=== PATIENT | female | born 1935 | race African-American/Black ===

== ENCOUNTER 2016-07-31 10:23 | Inpatient (IN) | payer MEDICARE, MEDICAID ==
[2016-07-31] MEDS ORDERED: NITROGLYCERIN 50 MG/D5W 250 ML IV PRN (11:37)
[2016-07-31 12:33] LABS: ABSOLUTE BASOPHILS # (AUTO) 0.1 10^3/uL (0.0-0.2); ABSOLUTE EOSINOPHILS # (AUTO) 0.1 10^3/uL (0.0-0.6); ABSOLUTE MONOCYTES (AUTO) 0.7 10^3/uL (0.1-1.4); ABSOLUTE NEUT (AUTO) 4.8 10^3/uL (1.7-8.2); EOSINOPHILS % (AUTO) 0.8 % (0-6); HEMATOCRIT 41.7 % (36.0-47.0); HEMOGLOBIN 14.5 g/dL (12.0-15.5); HGB HCT DIFFERENCE 1.8; LYMPHOCYTES % (AUTO) 26.4 % (13-45); MEAN CORPUSCULAR HEMOGLOBIN 32.5 pg (27.0-33.4); MEAN CORPUSCULAR HGB CONC 34.9 g/dL (32.0-36.0); MEAN CORPUSCULAR VOLUME 93 fl (80-97); MONOCYTES % (AUTO) 8.5 % (3-13); RED BLOOD COUNT 4.46 10^6/uL (3.72-5.28); RED CELL DISTRIBUTION WIDTH 13.2 % (11.5-14.0); SEGMENTED NEUTROPHILS % (AUTO) 63.3 % (42-78); WHITE BLOOD COUNT 7.7 10^3/uL (4.0-10.5)
[2016-07-31 12:52] LABS: APPEARANCE,URINE SLIGHTLY-CLOUDY; BILIRUBIN,URINE NEGATIVE (NEGATIVE); GLUCOSE, URINE NEGATIVE (NEGATIVE); KETONES,URINE NEGATIVE (NEGATIVE); LEUKOCYTE ESTERASE,URINE NEGATIVE (NEGATIVE); NITRITE,URINE NEGATIVE (NEGATIVE); PROTEIN,URINE NEGATIVE (NEGATIVE); UROBILINOGEN,URINE NEGATIVE mg/dL (<2.0)
[2016-07-31 14:03] LABS: ALBUMIN 4.1 g/dL (3.5-5.0); ANION GAP 16 (5-19); CARBON DIOXIDE 22 mmol/L (22-30); CHLORIDE 104 mmol/L (98-107); GLUCOSE 126 mg/dL (75-110); POTASSIUM 4.1 mmol/L (3.6-5.0); SODIUM 142.2 mmol/L (137-145); TOTAL PROTEIN 7.2 g/dL (6.3-8.2)
[2016-07-31 14:05] LABS: ALANINE AMINOTRANSFERASE 28 U/L (9-52); ALKALINE PHOSPHATASE 61 U/L (38-126); ASPARTATE AMINO TRANSFERASE 27 U/L (14-36); BILIRUBIN,DIRECT 0.4 mg/dL (0.0-0.4); BILIRUBIN,TOTAL 0.7 mg/dL (0.2-1.3); BLOOD UREA NITROGEN 14 mg/dL (7-20); CALCIUM 9.4 mg/dL (8.4-10.2); CREATININE RESULT 0.64 mg/dL (0.52-1.25)
[2016-07-31] MEDS ORDERED: ENOXAPARIN SODIUM INJ 40 MG/0.4 ML DISP.SYRIN SUBCUT ONE (15:15)
[2016-07-31] MEDS: ENALAPRILAT DIHYDRATE INJ/PF 2.5 MG/2 ML SDV IV SCH ×2 (16:02→23:10)
--- NOTE | 2016-07-31 18:59 | EKG REPORT ---
SEVERITY:- ABNORMAL ECG - SINUS RHYTHM PROBABLE LEFT ATRIAL ABNORMALITY PROBABLE LEFT VENTRICULAR HYPERTROPHY : Confirmed by: Nini Nowak 31-Jul-2016 18:59:28
--- NOTE | 2016-07-31 19:46 | PDOC H&P ---
History of Present Illness Admission Date/PCP: 07/31/16 10:23 SHANIA ARDON MD History of Present Illness: CORNELIA AMAYA is a 80 year old female, she is not compliant with her medications for the control blood pressure, she have hypertension, she came to the office today for follow-up, the blood pressure recorded was 220 systolic over 120 diastolic and she was symptomatic with headache and neck pain, because of the severely elevated blood pressure and the fact that she was symptomatic ,she was admitted directly from the office into the hospital for management.. Patient shown persistent non-medication adherence over many months, she always expresses concern about medication for the control blood pressure and she does not also engages in therapeutic lifestyle modifications including regular exercise and the adoption of "DASH" dietary restriction. Past Medical History Cardiac Medical History: Reports: Hypertension Musculoskeltal Medical History: Reports: Arthritis Psychiatric Medical History: Reports: General Anxiety Disorder Social History Smoking Status: Former Smoker Last Time Smoked: About 60 years ago Frequency of Alcohol Use: None Drugs: None Hx Prescription Drug Abuse: No Family History Family History: Hypertension Parental Family History Reviewed: Yes Children Family History Reviewed: Yes Sibling(s) Family History Reviewed.: Yes Medication/Allergy Home Medications: Azilsartan Medoxomil [Edarbi] 80 mg PO DAILY 07/31/16 Hydrocodone Bit/Acetaminophen [Hydrocodon-Acetaminophn 10-325] 1 tab PO TIDP PRN 07/31/16 Lorazepam [Ativan 1 mg Tablet] 1 mg PO BID 07/31/16 Metoprolol Succinate [Toprol XL 100 mg Tablet] 100 mg PO DAILY 07/31/16 Allergies/Adverse Reactions: metoprolol Allergy (Unknown, Unverified 07/31/16 10:45) hydralazine Allergy (Unverified 07/31/16 10:47) labetalol Allergy (Unverified 07/31/16 10:46) Review of Systems Constitutional: PRESENT: headache(s) Eyes: ABSENT: visual disturbances Ears: ABSENT: hearing changes Cardiovascular: ABSENT: chest pain, dyspnea on exertion, edema, orthropnea, palpitations Respiratory: ABSENT: cough, hemoptysis Gastrointestinal: ABSENT: abdominal pain, constipation, diarrhea, hematemesis, hematochezia, nausea, vomiting Genitourinary: ABSENT: dysuria, hematuria Musculoskeletal: ABSENT: joint swelling Integumentary: ABSENT: rash, wounds Neurological: ABSENT: abnormal gait, abnormal speech, confusion, dizziness, focal weakness, syncope Psychiatric: ABSENT: anxiety, depression, homidical ideation, suicidal ideation Endocrine: ABSENT: cold intolerance, heat intolerance, menstrual abnormalities, polydipsia, polyuria Hematologic/Lymphatic: ABSENT: easy bleeding, easy bruising, lymphadenopathy Physical Exam Vital Signs: Temp Pulse Resp BP Pulse Ox 99.1 F 82 18 147/85 H 97 07/31/16 18:23 07/31/16 18:30 07/31/16 17:41 07/31/16 18:30 07/31/16 18:23 Intake & Output 07/30/16 07/31/16 08/01/16 06:59 06:59 06:59 Intake Total 483 Output Total 350 Balance 133 Weight 79 kg General appearance: PRESENT: no acute distress, well-developed, well-nourished Head exam: PRESENT: atraumatic, normocephalic Eye exam: PRESENT: conjunctiva pink, EOMI, PERRLA Ear exam: PRESENT: normal external ear exam Mouth exam: PRESENT: moist, tongue midline Neck exam: PRESENT: full ROM Respiratory exam: PRESENT: clear to auscultation keith Cardiovascular exam: PRESENT: RRR, +S1, +S2 Pulses: PRESENT: normal dorsalis pedis pul, +2 pedal pulses bilateral Vascular exam: PRESENT: normal capillary refill GI/Abdominal exam: PRESENT: normal bowel sounds, soft Rectal exam: PRESENT: deferred Neurological exam: PRESENT: alert, awake, oriented to person, oriented to place , oriented to time, oriented to situation, CN II-XII grossly intact Psychiatric exam: PRESENT: appropriate affect, normal mood Skin exam: PRESENT: dry, intact, warm Results Laboratory Results: 07/31/16 12:05 07/31/16 13:18 07/31/16 07/31/16 07/31/16 12:05 12:05 12:25 WBC 7.7 RBC 4.46 Hgb 14.5 Hct 41.7 MCV 93 MCH 32.5 MCHC 34.9 RDW 13.2 Plt Count 249 Seg Neutrophils % 63.3 Lymphocytes % 26.4 Monocytes % 8.5 Eosinophils % 0.8 Basophils % 1.0 Absolute Neutrophils 4.8 Absolute Lymphocytes 2.0 Absolute Monocytes 0.7 Absolute Eosinophils 0.1 Absolute Basophils 0.1 Sodium Cancelled Potassium Cancelled Chloride Cancelled Carbon Dioxide Cancelled Anion Gap Cancelled BUN Cancelled Creatinine Cancelled Est GFR ( Amer) Cancelled Est GFR (Non-Af Amer) Cancelled Glucose Cancelled Calcium Cancelled Total Bilirubin Cancelled AST Cancelled ALT Cancelled Alkaline Phosphatase Cancelled Total Protein Cancelled Albumin Cancelled Urine Color YELLOW Urine Appearance SLIGHTLY-CLOUDY Urine pH 6.0 Ur Specific [place] 1.010 Urine Protein NEGATIVE Urine Glucose (UA) NEGATIVE Urine Ketones NEGATIVE Urine Blood NEGATIVE Urine Nitrite NEGATIVE Ur Leukocyte Esterase NEGATIVE Urine WBC (Auto) 0 07/31/16 13:18 WBC RBC Hgb Hct MCV MCH MCHC RDW Plt Count Seg Neutrophils % Lymphocytes % Monocytes % Eosinophils % Basophils % Absolute Neutrophils Absolute Lymphocytes Absolute Monocytes Absolute Eosinophils Absolute Basophils Sodium 142.2 Potassium 4.1 Chloride 104 Carbon Dioxide 22 Anion Gap 16 BUN 14 Creatinine 0.64 Est GFR ( Amer) > 60 Est GFR (Non-Af Amer) > 60 Glucose 126 H Calcium 9.4 Total Bilirubin 0.7 AST 27 ALT 28 Alkaline Phosphatase 61 Total Protein 7.2 Albumin 4.1 Urine Color Urine Appearance Urine pH Ur Specific [place] Urine Protein Urine Glucose (UA) Urine Ketones Urine Blood Urine Nitrite Ur Leukocyte Esterase Urine WBC (Auto) Impressions: Chest X-Ray 07/31/16 00:00 IMPRESSION: NO SIGNIFICANT RADIOGRAPHIC FINDING IN THE CHEST. Assessment & Plan - Diagnosis (1) Hypertensive emergency Is this a current diagnosis for this admission?: YesPlan: She has hypertensive emergency she is symptomatic and the blood pressure is over 180 systolic consistent with hypertensive emergency she is admitted to be treated with IV Vasotec and nitroglycerin infusion and MRI brain to be ordered
[2016-08-01] MEDS: ENALAPRILAT DIHYDRATE INJ/PF 2.5 MG/2 ML SDV IV SCH ×4 (04:17→20:40)
[2016-08-01] MEDS: ENOXAPARIN SODIUM INJ 40 MG/0.4 ML DISP.SYRIN SUBCUT SCH (09:55)
--- NOTE | 2016-08-01 20:23 | PDOC PROGRESS REPORT ---
Subjective Progress Note for:: 08/01/16 Subjective:: Patient was admitted yesterday because of hypertensive emergency, MRI brain was done today showed cerebral atrophy but there is no acute infarction, no hemorrhage Physical Exam Vital Signs: Temp Pulse Resp BP Pulse Ox 98.9 F 84 19 187/86 H 100 08/01/16 15:32 08/01/16 19:00 08/01/16 15:32 08/01/16 15:32 08/01/16 15:32 Intake & Output 07/31/16 08/01/16 08/02/16 06:59 06:59 06:59 Intake Total 1392 1030 Output Total 350 200 Balance 1042 830 Weight 79 kg General appearance: PRESENT: no acute distress, well-developed, well-nourished Head exam: PRESENT: atraumatic, normocephalic Eye exam: PRESENT: conjunctiva pink, EOMI, PERRLA Ear exam: PRESENT: normal external ear exam Mouth exam: PRESENT: moist, tongue midline Neck exam: PRESENT: full ROM Respiratory exam: PRESENT: clear to auscultation keith Cardiovascular exam: PRESENT: RRR, +S1, +S2 Pulses: PRESENT: normal dorsalis pedis pul, +2 pedal pulses bilateral Vascular exam: PRESENT: normal capillary refill GI/Abdominal exam: PRESENT: normal bowel sounds, soft Rectal exam: PRESENT: deferred Neurological exam: PRESENT: alert, awake, oriented to person, oriented to place , oriented to time, oriented to situation, CN II-XII grossly intact Psychiatric exam: PRESENT: appropriate affect, normal mood Skin exam: PRESENT: dry, intact, warm Results Laboratory Results: 07/31/16 12:05 07/31/16 13:18 Impressions: Chest X-Ray 07/31/16 00:00 IMPRESSION: NO SIGNIFICANT RADIOGRAPHIC FINDING IN THE CHEST. Head MRI 08/01/16 00:00 IMPRESSION: ATROPHY AND CHRONIC MICRO-VASCULAR ISCHEMIC CHANGES. OTHERWISE NORMAL MRI OF THE BRAIN WITHOUT INTRAVENOUS GADOLINIUM CONTRAST. Assessment & Plan - Diagnosis (1) Hypertensive emergency Is this a current diagnosis for this admission?: YesPlan: The nitroglycerin infusion was weaned off and she is now started on p.o. medications she is still on the IV Vasotec
[2016-08-01] MEDS ORDERED: HYDROCODONE/ACETAMINOPHEN 10-325 MG TABLET PO PRN (20:33)
[2016-08-01] MEDS ORDERED: ONDANSETRON HCL INJ/PF 4 MG/2 ML SDV IV PRN (20:35)
[2016-08-02] MEDS: ENALAPRILAT DIHYDRATE INJ/PF 2.5 MG/2 ML SDV IV SCH ×4 (03:49→21:45)
[2016-08-02] MEDS: ENOXAPARIN SODIUM INJ 40 MG/0.4 ML DISP.SYRIN SUBCUT SCH (09:00)
[2016-08-02] MEDS: LORAZEPAM 1 MG TABLET PO SCH ×2 (09:01→17:03)
[2016-08-02] MEDS: METOPROLOL SUCCINATE 50 MG TAB.SR.24H PO SCH (09:02)
[2016-08-02] MEDS ORDERED: (PENDING PHARMACY ID) (Azilsartan Medoxomil [Edarbi] 80 MG) PO SCH (10:00)
--- NOTE | 2016-08-02 17:12 | PDOC PROGRESS REPORT ---
Subjective Progress Note for:: 08/02/16 Subjective:: Patient is not compliant with her medication for the control blood pressure. She is still on IV Vasotec and p.o. metoprolol Physical Exam Vital Signs: Temp Pulse Resp BP Pulse Ox 99.0 F 68 19 148/83 H 98 08/02/16 16:28 08/02/16 16:28 08/02/16 16:28 08/02/16 16:28 08/02/16 16:28 Intake & Output 08/01/16 08/02/16 08/03/16 06:59 06:59 06:59 Intake Total 1392 1030 100 Output Total 350 200 Balance 1042 830 100 Weight 79 kg General appearance: PRESENT: no acute distress, well-developed, well-nourished Head exam: PRESENT: atraumatic, normocephalic Eye exam: PRESENT: conjunctiva pink, EOMI, PERRLA Ear exam: PRESENT: normal external ear exam Mouth exam: PRESENT: moist, tongue midline Neck exam: PRESENT: full ROM Respiratory exam: PRESENT: clear to auscultation keith Cardiovascular exam: PRESENT: RRR, +S1, +S2 Pulses: PRESENT: normal dorsalis pedis pul, +2 pedal pulses bilateral Vascular exam: PRESENT: normal capillary refill GI/Abdominal exam: PRESENT: normal bowel sounds, soft Rectal exam: PRESENT: deferred Neurological exam: PRESENT: alert, awake, oriented to person, oriented to place , oriented to time, oriented to situation, CN II-XII grossly intact. ABSENT: motor sensory deficit Psychiatric exam: PRESENT: appropriate affect, normal mood Skin exam: PRESENT: dry, intact, warm Results Laboratory Results: 07/31/16 12:05 07/31/16 13:18 Impressions: Chest X-Ray 07/31/16 00:00 IMPRESSION: NO SIGNIFICANT RADIOGRAPHIC FINDING IN THE CHEST. Head MRI 08/01/16 00:00 IMPRESSION: ATROPHY AND CHRONIC MICRO-VASCULAR ISCHEMIC CHANGES. OTHERWISE NORMAL MRI OF THE BRAIN WITHOUT INTRAVENOUS GADOLINIUM CONTRAST. Assessment & Plan - Diagnosis (1) Hypertensive emergency Is this a current diagnosis for this admission?: YesPlan: Start amlodipine 10 mg p.o. daily in addition to the metoprolol
[2016-08-02] MEDS ORDERED: AMLODIPINE BESYLATE 10 MG TABLET PO ONE (18:00)
[2016-08-03] MEDS: ENALAPRILAT DIHYDRATE INJ/PF 2.5 MG/2 ML SDV IV SCH ×4 (03:55→23:28)
[2016-08-03] MEDS: LORAZEPAM 1 MG TABLET PO SCH ×2 (09:23→18:29)
[2016-08-03] MEDS: ENOXAPARIN SODIUM INJ 40 MG/0.4 ML DISP.SYRIN SUBCUT SCH (09:25)
[2016-08-03] MEDS: AMLODIPINE BESYLATE 10 MG TABLET PO SCH (09:25)
[2016-08-03] MEDS: METOPROLOL SUCCINATE 50 MG TAB.SR.24H PO SCH (09:25)
--- NOTE | 2016-08-03 18:55 | PDOC DISCHARGE SUMMARY ---
General - Admit/Disc Date/PCP Admission Date/Primary Care Provider: 07/31/16 10:23 SHANIA ARDON MD Discharge Date: 08/04/16 - Discharge Diagnosis (1) Hypertensive emergency Is this a current diagnosis for this admission?: Yes - Additional Information Discharge Diet: Regular Discharge Activity: Activity As Tolerated Home Medications: Lorazepam [Ativan 1 mg Tablet] 1 mg PO BID 07/31/16 Amlodipine Besylate [Norvasc 10 mg Tablet] 10 mg PO DAILY #90 tablet 08/03/16 Hydrocodone Bit/Acetaminophen [Hydrocodon-Acetaminophn 10-325] 1 tab PO TIDP PRN #90 08/03/16 Hydrocodone Bit/Acetaminophen [Hydrocodon-Acetaminophn 10-325] 1 tab PO TIDP PRN #90 tablet 08/03/16 Losartan/Hydrochlorothiazide [Hyzaar 100-12.5 Tablet] 1 each PO DAILY #90 tablet 08/03/16 Metoprolol Succinate [Toprol XL 100 mg Tablet] 100 mg PO DAILY #90 08/03/16 History of Present Illness History of Present Illness: CORNELIA AMAYA is a 80 year old female, she is not compliant with her medications for the control blood pressure, she have hypertension, she came to the office today for follow-up, the blood pressure recorded was 220 systolic over 120 diastolic and she was symptomatic with headache and neck pain, because of the severely elevated blood pressure and the fact that she was symptomatic ,she was admitted directly from the office into the hospital for management.. Patient shown persistent non-medication adherence over many months, she always expresses concern about medication for the control blood pressure and she does not also engages in therapeutic lifestyle modifications including regular exercise and the adoption of "DASH" dietary restriction. Hospital Course Hospital Course: Patient was admitted because of hypertensive emergency associated with headache and neck pain, MRI of the brain was done showed changes suggestive of small vessel disease, there is no acute pathology. She was treated with IV nitroglycerin infusion on Vasotec IV and ultimately she was transitioned to p.o. medications. The problem with this patient is compliance to medical regimen, she is not compliant she has extremely poor medication adherence. She was again advised of the consequences of uncontrolled hypertension which include stroke, heart disease and kidney disease. Physical Exam Vital Signs: Temp Pulse Resp BP Pulse Ox 98.3 F 73 19 138/79 H 98 08/03/16 16:25 08/03/16 16:25 08/03/16 16:25 08/03/16 16:25 08/03/16 16:25 Intake & Output 08/02/16 08/03/16 08/04/16 06:59 06:59 06:59 Intake Total 1030 1353 210 Output Total 200 Balance 830 1353 210 Weight 73.9 kg General appearance: PRESENT: no acute distress, well-developed, well-nourished Head exam: PRESENT: atraumatic, normocephalic Eye exam: PRESENT: conjunctiva pink, EOMI, PERRLA Ear exam: PRESENT: normal external ear exam Mouth exam: PRESENT: moist, tongue midline Neck exam: PRESENT: full ROM Cardiovascular exam: PRESENT: RRR, +S1, +S2 Vascular exam: PRESENT: normal capillary refill GI/Abdominal exam: PRESENT: normal bowel sounds, soft Rectal exam: PRESENT: deferred Neurological exam: PRESENT: alert, awake, oriented to person, oriented to place , oriented to time, oriented to situation, CN II-XII grossly intact Psychiatric exam: PRESENT: appropriate affect, normal mood Skin exam: PRESENT: dry, intact, warm Results Laboratory Results: 07/31/16 12:05 07/31/16 13:18 Impressions: Chest X-Ray 07/31/16 00:00 IMPRESSION: NO SIGNIFICANT RADIOGRAPHIC FINDING IN THE CHEST. Head MRI 08/01/16 00:00 IMPRESSION: ATROPHY AND CHRONIC MICRO-VASCULAR ISCHEMIC CHANGES. OTHERWISE NORMAL MRI OF THE BRAIN WITHOUT INTRAVENOUS GADOLINIUM CONTRAST.
[2016-08-04] MEDS: ENALAPRILAT DIHYDRATE INJ/PF 2.5 MG/2 ML SDV IV SCH ×2 (07:01→08:58)
[2016-08-04] MEDS: ENOXAPARIN SODIUM INJ 40 MG/0.4 ML DISP.SYRIN SUBCUT SCH (09:08)
[2016-08-04] MEDS: AMLODIPINE BESYLATE 10 MG TABLET PO SCH (11:35)
[2016-08-04] MEDS: METOPROLOL SUCCINATE 50 MG TAB.SR.24H PO SCH (11:36)
[2016-08-04] MEDS: LORAZEPAM 1 MG TABLET PO SCH (11:37)
[2016-08-04 13:49] VITALS: BP 131/72
== END 2016-08-04 14:58 | disposition home or self-care (01) | DRG 305 ==
LOC: 3S 10:23
PROVIDERS: ADMIT Internal Medicine; ATTEND Internal Medicine
DX: I16.1 Hypertensive emergency (principal); I10 Essential (primary) hypertension; M19.90 Unspecified osteoarthritis, unspecified site; F41.1 Generalized anxiety disorder; M51.36 Other intervertebral disc degeneration, lumbar region; M50.30 Other cervical disc degeneration, unspecified cervical region; Z79.899 Other long term (current) drug therapy; Z91.14 Patient's other noncompliance with medication regimen; Z88.8 Allergy status to other drugs, medicaments and biological substances; Z90.710 Acquired absence of both cervix and uterus; Z90.49 Acquired absence of other specified parts of digestive tract; Z87.891 Personal history of nicotine dependence; Z82.49 Family history of ischemic heart disease and other diseases of the circulatory system; Z80.9 Family history of malignant neoplasm, unspecified; Z83.3 Family history of diabetes mellitus
CPT/HCPCS: 36415; 70551; 71020; 80048; 80076; 81001; 85025; 93005; 93010; J1650; J3490

== ENCOUNTER 2018-01-12 13:12 | Emergency (ER) | payer MEDICARE, MEDICAID ==
[2018-01-12 13:30] VITALS: BP 159/89
--- NOTE | 2018-01-12 13:35 | ER Document Report ---
ED General - General Chief Complaint: Leg Pain Stated Complaint: LEFT LEG PAIN/NAUSEA Time Seen by Provider: 01/12/18 13:33 Notes: The patient is an 82-year-old female, past medical history chronic pain, chronic neuropathy, GERD, presents with 1 week of left thigh pain. She does not remember an injury. She is also having mild "queasiness." She denies increased numbness, tingling, abdominal pain, vomiting, diarrhea, constipation, fevers, swelling or difficulty walking. TRAVEL OUTSIDE OF THE [place] IN LAST 30 DAYS: No - Related Data Allergies/Adverse Reactions: metoprolol Allergy (Unknown, Unverified 07/31/16 10:45) hydralazine Allergy (Unverified 07/31/16 10:47) labetalol Allergy (Verified 08/03/16 05:13) Past Medical History - General Information source: Patient - Social History Smoking Status: Unknown if Ever Smoked Family History: Hypertension - Past Medical History Cardiac Medical History: Reports: Hx Hypertension Musculoskeletal Medical History: Reports Hx Arthritis Psychiatric Medical History: Reports: Hx Depression Review of Systems - Review of Systems Notes: REVIEW OF SYSTEMS: CONSTITUTIONAL: -fevers, -chills EENT: -eye pain, -difficulty swallowing, -nasal congestion CARDIOVASCULAR: -chest pain, -syncope. RESPIRATORY: -cough, -SOB GASTROINTESTINAL: -abdominal pain, +nausea, -vomiting, -diarrhea GENITOURINARY: -dysuria, -hematuria MUSCULOSKELETAL: -back pain, -neck pain, +left leg pain SKIN: -rash or skin lesions. HEMATOLOGIC: -easy bruising or bleeding. LYMPHATIC: -swollen, enlarged glands. NEUROLOGICAL: -altered mental status or loss of consciousness, -headache, - neurologic symptoms PSYCHIATRIC: -anxiety, -depression. ALL OTHER SYSTEMS REVIEWED AND NEGATIVE. Physical Exam - Vital signs Vitals: Temp Pulse Resp BP Pulse Ox 97.8 F 79 14 159/89 H 95 01/12/18 13:19 01/12/18 13:19 01/12/18 13:19 01/12/18 13:19 01/12/18 13:19 - Notes Notes: PHYSICAL EXAMINATION: GENERAL: Well-appearing, well-nourished and in no acute distress. HEAD: Atraumatic, normocephalic. EYES: Pupils equal round and reactive to light, extraocular movements intact, sclera anicteric, conjunctiva are normal. ENT: nares patent, oropharynx clear without exudates. Moist mucous membranes. NECK: Normal range of motion, supple without lymphadenopathy LUNGS: Breath sounds clear to auscultation bilaterally and equal. No wheezes rales or rhonchi. HEART: Regular rate and rhythm without murmurs ABDOMEN: Soft, nontender, normoactive bowel sounds. No guarding, no rebound. No masses appreciated. EXTREMITIES: Normal range of motion, no pitting or edema. No cyanosis. Strong distal pulses and able to move her entire left extremity. Mild tenderness of lateral left thigh. NEUROLOGICAL: Cranial nerves grossly intact. Normal speech, normal gait. Normal sensory and motor exams. PSYCH: Normal mood, normal affect. SKIN: Warm, Dry, normal turgor, no rashes or lesions noted. Course - Re-evaluation Re-evalutation: Patient is able to ambulate without assistance. Ultrasound of her left lower extremity did not reveal a DVT. X-ray of her femur was normal. She has strong distal pulses and this rules out an acute arterial occlusion. Rest of blood work was also unremarkable, other than slight hypokalemia. She was told to eat a banana when she returns home. She will also follow-up with her pain management doctor and primary care physician for further evaluation and treatment. - Vital Signs Vital signs: Temp Pulse Resp BP Pulse Ox 97.8 F 79 21 H 159/89 H 98 01/12/18 13:19 01/12/18 13:19 01/12/18 14:00 01/12/18 13:19 01/12/18 14:00 - Laboratory Result Diagrams: 01/12/18 14:02 01/12/18 14:02 Laboratory results interpreted by me: 01/12/18 01/12/18 14:02 14:02 Potassium 3.5 L Urine Urobilinogen 4.0 H - Diagnostic Test Radiology reviewed: Image reviewed, Reports reviewed Radiology results interpreted by me: Left femur x-ray: NAD LLE DVT US: No DVT (Prelim tech read) Discharge - Discharge Clinical Impression: Left leg pain Condition: Stable Disposition: HOME, SELF-CARE Additional Instructions: The ultrasound looking at your legs did not reveal any blood clots and your femur x-ray did not show any broken bones. Your blood work was all normal today. Follow-up with your pain management doctor and primary care doctor for further evaluation and treatment. Prescriptions: Diclofenac Sodium 100 gm TP TID #100 gel..gram. Forms: Elevated Blood Pressure Referrals: SHANIA ARDON MD [Primary Care Provider] - Follow up as needed
[2018-01-12 14:14] LABS: APPEARANCE,URINE CLEAR; BILIRUBIN,URINE NEGATIVE (NEGATIVE); COLOR,URINE YELLOW; GLUCOSE, URINE NEGATIVE (NEGATIVE); KETONES,URINE NEGATIVE (NEGATIVE); LEUKOCYTE ESTERASE,URINE NEGATIVE (NEGATIVE); NITRITE,URINE NEGATIVE (NEGATIVE); PROTEIN,URINE NEGATIVE (NEGATIVE); URINE SPECIFIC GRAVITY 1.015
[2018-01-12 14:21] LABS: ABSOLUTE BASOPHILS # (AUTO) 0.1 10^3/uL (0.0-0.2); ABSOLUTE LYMPHOCYTES (AUTO) 1.5 10^3/uL (0.5-4.7); ABSOLUTE MONOCYTES (AUTO) 0.6 10^3/uL (0.1-1.4); ABSOLUTE NEUT (AUTO) 3.8 10^3/uL (1.7-8.2); BASOPHILS % (AUTO) 1.2 % (0-2); EOSINOPHILS % (AUTO) 0.5 % (0-6); HEMATOCRIT 44.3 % (36.0-47.0); HEMOGLOBIN 15.3 g/dL (12.0-15.5); LYMPHOCYTES % (AUTO) 24.9 % (13-45); MEAN CORPUSCULAR HEMOGLOBIN 32.3 pg (27.0-33.4); MEAN CORPUSCULAR HGB CONC 34.6 g/dL (32.0-36.0); MEAN CORPUSCULAR VOLUME 93 fl (80-97); PLATELET COUNT 303 10^3/uL (150-450); RED BLOOD COUNT 4.76 10^6/uL (3.72-5.28); RED CELL DISTRIBUTION WIDTH 13.5 % (11.5-14.0); SEGMENTED NEUTROPHILS % (AUTO) 63.4 % (42-78); TOTAL CELLS COUNTED % (AUTO) 100 %
[2018-01-12 14:42] LABS: ANION GAP 11 (5-19); BLOOD UREA NITROGEN 14 mg/dL (7-20); CALCIUM 9.9 mg/dL (8.4-10.2); CARBON DIOXIDE 29 mmol/L (22-30); CHLORIDE 100 mmol/L (98-107); CREATINE KINASE 66 U/L (30-135); GLUCOSE 98 mg/dL (75-110); POTASSIUM 3.5 mmol/L (3.6-5.0); SODIUM 140.1 mmol/L (137-145)
--- NOTE | 2018-01-12 15:44 | RADIOLOGY REPORT (SQ) ---
EXAM DESCRIPTION: FEMUR LEFT COMPLETED DATE/TIME: 01/12/2018 3:26 pm REASON FOR STUDY: left leg pain COMPARISON: None. NUMBER OF VIEWS: Two views. TECHNIQUE: Two radiographic images acquired of the left femur to include hip and knee in at least on e projection. LIMITATIONS: None. FINDINGS: MINERALIZATION: Normal. BONES: No acute fracture. No worrisome bone lesions. SOFT TISSUES: No obvious swelling or foreign body. OTHER: No other significant finding. IMPRESSION: NO RADIOGRAPHIC EVIDENCE OF ACUTE INJURY. TECHNICAL DOCUMENTATION: JOB ID: [id number] [employer]- All Rights Reserved Reading location - IP/workstation name: [email or web address]
--- NOTE | 2018-01-12 20:22 | EKG REPORT ---
SEVERITY:- BORDERLINE ECG - SINUS RHYTHM PROBABLE LEFT ATRIAL ABNORMALITY : Confirmed by: Chelsea Kerr MD 12-Jan-2018 20:21:37
--- NOTE | 2018-01-13 12:36 | XCELERA REPORT ---
[address] [place] [facility] [address] Lower Extremity Venous Evaluation Procedure: Color flow and duplex imaging of the veins of the left lower extremity as well as the right Common Femoral vein. Right Sided Venous Evaluation The right common femoral vein is fully compressible. Spontaneous and phasic flow is present in the right common femoral vein. Left Sided Venous Evaluation Normal vessel filling wall to wall, compression and augmentation as well as Colour flow down to the infrageniculate veins. Interpretation Summary No duplex evidence of DVT or obstruction in the left lower extremity nor in the right Common Femoral vein. Name: CORNELIA AMAYA Age: 82 yrs Gender: Female : 1935 Patient Status: Preadmit Patient Location: ER Study Date: 01/12/2018 02:23 PM Reason For Study: LLE pain Ordering Physician: TEJAL WHITING Performed By: Keesha Gar : TEJAL WHITING > Dex Wong
== END 2018-01-12 15:59 | disposition home or self-care (01) ==
LOC: ER 13:12
DX: M79.652 Pain in left thigh (principal); E87.6 Hypokalemia; R11.0 Nausea; I10 Essential (primary) hypertension; Z88.8 Allergy status to other drugs, medicaments and biological substances
CPT/HCPCS: 36415; 80048; 81001; 82550; 85025; 93005; 93010; 93971; 99284

== ENCOUNTER → 2018-02-27 | Outpatient (CLI) | payer MEDICARE, MEDICAID ==
--- NOTE | 2018-02-27 10:31 | RADIOLOGY REPORT (SQ) ---
EXAM DESCRIPTION: MRI LUMBAR SPINE WITHOUT COMPLETED DATE/TIME: 02/27/2018 9:40 am REASON FOR STUDY: OTHER INTERVERTEBRAL DISC DISORDERS, LUMBOSACRAL REGION (M51.87), LUMBAR RA M51.87 OTHER INTERVERTEBRAL DISC DISORDERS, LUMBOSACRAL MAGY COMPARISON: None. TECHNIQUE: Sagittal and Axial imaging includes T1, T2, STIR and gradient echo sequences. Coronal T2/ HASTE imaging. LIMITATIONS: Motion. FINDINGS: VISUALIZED UPPER ABDOMEN: Limited evaluation. No acute or suspicious findings suggested. SEGMENTATION: Transitional vertebra. ALIGNMENT: Mild convex right scoliosis. Grade 1 anterolisthesis L3 relative to L4, L4 relative to L5 . VERTEBRAE: Intact. BONE MARROW: Normal. No marrow replacement or reactive changes. DISC SIGNAL: Desiccation multiple levels. POSTERIOR ELEMENTS: Generally intact. No pars defect evident. HARDWARE: None in the spine. CORD AND CONUS: Normal in size and signal intensity. Conus at the appropriate level. SOFT TISSUES: No aortic aneurysm seen. No bulky retroperitoneal adenopathy or mass. No paraspinal mas s or fluid. L1-L2: Posterior disc bulge. Minimal narrowing of the spinal canal. Mild neural foraminal narrowing bilaterally. L2-L3: Posterior disc bulge. Facet arthropathy. Minimal narrowing of the spinal canal. Mild neural foraminal narrowing. L3-L4: Similar findings as at L2- 3. L4-L5: Small left lateral disc herniation contacts the exiting L4 nerve root. Minimal narrowing of t he spinal canal. L5-S1: Central annular fissure. Facet arthropathy. No significant stenosis. LOWER THORACIC: Incompletely imaged. No stenosis seen. SACRUM: Visualized upper sacrum intact. OTHER: No other significant findings. IMPRESSION: Spondylosis and facet arthropathy. Mild malalignment. Small left lateral disc herniati on L4-5. TECHNICAL DOCUMENTATION: JOB ID: [id number] [employer]- All Rights Reserved Reading location - IP/workstation name: [email or web address]
== END ==
LOC: RAD 08:17
PROVIDERS: ATTEND Physician Assistant
DX: M51.87 Other intervertebral disc disorders, lumbosacral region (principal); M54.17 Radiculopathy, lumbosacral region
CPT/HCPCS: 72148

== ENCOUNTER → 2018-11-01 | Outpatient (CLI) | payer MEDICARE, MEDICAID ==
--- NOTE | 2018-11-01 11:48 | RADIOLOGY REPORT (SQ) ---
EXAM DESCRIPTION: BARIUM SWALLOW ESOPHAGUS COMPLETED DATE/TIME: 11/01/2018 10:58 am REASON FOR STUDY: UPPER ABD PAIN (R10.10) R10.10 UPPER ABDOMINAL PAIN, UNSPECIFIED COMPARISON: None. TECHNIQUE: Under fluoroscopic guidance, patient ingested effervescent granules followed by thick and thin barium. Fluoroscopic spot images and routine radiographic images acquired and stored on PACS. 12 MM BARIUM TABLET GIVEN: Yes. No significant delay in passage. LIMITATIONS: None. FLUOROSCOPY TIME: FLUORO TIME: 2 minutes 20 seconds 11 series of digital images saved to PACS. FINDINGS: NEUROMUSCULAR COORDINATION OF SWALLOW: Normal. No aspiration. ESOPHAGEAL MOTILITY: Normal peristalsis. No esophageal spasm. ESOPHAGEAL MUCOSA: Just above the GE junction and small hiatal hernia, there is mucosal irregularity along the distal esophagus with tiny ulcerations present. Sheehan's esophagus may be present. GASTRO-ESOPHAGEAL JUNCTION: Small hiatal hernia without Schatzki's ring. Unprovoked gastroesophageal reflux to the mid 3rd of the esophagus NON-GI TRACT STRUCTURES: Clips post cholecystectomy OTHER: Limited fluoro over the stomach was performed. Prompt gastric emptying into normal caliber du odenum and jejunum. However, a heavy burden of jejunal diverticulosis is present. IMPRESSION: Hiatal hernia with reflux and distal esophageal ulcerations. Jejunal diverticulosis COMMENT: Quality ID [id number]: Final reports for procedures using fluoroscopy that document radiation exp osure indices, or exposure time and number of fluorographic images (if radiation exposure indices are not available) TECHNICAL DOCUMENTATION: JOB ID: [id number] [email or web address]- All Rights Reserved Reading location - IP/workstation name: [email or web address]
== END ==
LOC: RAD 10:08
PROVIDERS: ATTEND Internal Medicine
DX: K22.10 Ulcer of esophagus without bleeding (principal); K21.9 Gastro-esophageal reflux disease without esophagitis; K44.9 Diaphragmatic hernia without obstruction or gangrene; K57.10 Diverticulosis of small intestine without perforation or abscess without bleeding; R10.10 Upper abdominal pain, unspecified
CPT/HCPCS: 74220

== ENCOUNTER 2019-05-31 14:52 | Inpatient (IN) | payer MEDICAID, MEDICARE ==
[2019-05-31 15:29] LABS: ABSOLUTE BASOPHILS # (AUTO) 0.1 10^3/uL (0.0-0.2); ABSOLUTE EOSINOPHILS # (AUTO) 0.2 10^3/uL (0.0-0.6); ABSOLUTE LYMPHOCYTES (AUTO) 4.4 10^3/uL (0.5-4.7); ABSOLUTE MONOCYTES (AUTO) 1.1 10^3/uL (0.1-1.4); ABSOLUTE NEUT (AUTO) 5.2 10^3/uL (1.7-8.2); BASOPHILS % (AUTO) 0.8 % (0-2); EOSINOPHILS % (AUTO) 1.4 % (0-6); HEMATOCRIT 43.4 % (36.0-47.0); HEMOGLOBIN 14.9 g/dL (12.0-15.5); LYMPHOCYTES % (AUTO) 40.7 % (13-45); MEAN CORPUSCULAR HEMOGLOBIN 33.6 pg (27.0-33.4); MEAN CORPUSCULAR HGB CONC 34.3 g/dL (32.0-36.0); MEAN CORPUSCULAR VOLUME 98 fl (80-97); MONOCYTES % (AUTO) 9.7 % (3-13); PLATELET COUNT 335 10^3/uL (150-450); RED BLOOD COUNT 4.43 10^6/uL (3.72-5.28); RED CELL DISTRIBUTION WIDTH 13.1 % (11.5-14.0); SEGMENTED NEUTROPHILS % (AUTO) 47.4 % (42-78); TOTAL CELLS COUNTED % (AUTO) 100 %; WHITE BLOOD COUNT 10.9 10^3/uL (4.0-10.5)
[2019-05-31 15:36] LABS: ALBUMIN 4.1 g/dL (3.5-5.0); ALKALINE PHOSPHATASE 70 U/L (38-126); ANION GAP 12 (5-19); ASPARTATE AMINO TRANSFERASE 31 U/L (14-36); BILIRUBIN,DIRECT 0.1 mg/dL (0.0-0.4); BILIRUBIN,TOTAL 0.6 mg/dL (0.2-1.3); BLOOD UREA NITROGEN 14 mg/dL (7-20); CALCIUM 9.7 mg/dL (8.4-10.2); CARBON DIOXIDE 25 mmol/L (22-30); CHLORIDE 100 mmol/L (98-107); GLUCOSE 94 mg/dL (75-110); POTASSIUM 3.9 mmol/L (3.6-5.0); TOTAL PROTEIN 7.5 g/dL (6.3-8.2)
--- NOTE | 2019-05-31 15:46 | RADIOLOGY REPORT (SQ) ---
EXAM DESCRIPTION: CHEST SINGLE VIEW COMPLETED DATE/TIME: 05/31/2019 3:34 pm REASON FOR STUDY: cough COMPARISON: 07/31/2016. EXAM PARAMETERS: NUMBER OF VIEWS: One view. TECHNIQUE: Single frontal radiographic view of the chest acquired. RADIATION DOSE: NA LIMITATIONS: None. FINDINGS: LUNGS AND PLEURA: Eventration of the right hemidiaphragm. No opacities, masses or pneumot horax. No pleural effusion. MEDIASTINUM AND HILAR STRUCTURES: No masses. Contour normal. HEART AND VASCULAR STRUCTURES: Heart normal in size. Normal vasculature. BONES: No acute findings. HARDWARE: None in the chest. OTHER: No other significant finding. IMPRESSION: NO ACUTE RADIOGRAPHIC FINDING IN THE CHEST. TECHNICAL DOCUMENTATION: JOB ID: [id number] 2010 [employer]- All Rights Reserved Reading location - IP/workstation name: [email or web address]
--- NOTE | 2019-05-31 16:54 | ER Document Report ---
ED Respiratory Problem - General Chief Complaint: Shortness Of Breath Stated Complaint: DIFFICULTY BREATHING Time Seen by Provider: 05/31/19 16:36 Notes: Patient is an 83-year-old female who presents to the emergency department with a chief complaint of shortness of breath. Patient states that about 2 weeks ago she was generally not feeling well and about 6 days ago she was seen by her primary care provider and was given Levaquin. Patient states that she feels she is getting weaker. Patient has history of hypertension and chronic pain. She is currently on Lyrica, [place], and amlodipine. TRAVEL OUTSIDE OF THE [place] IN LAST 30 DAYS: No - Related Data Allergies/Adverse Reactions: metoprolol Allergy (Unknown, Unverified 07/31/16 10:45) hydralazine Allergy (Unverified 07/31/16 10:47) labetalol Allergy (Verified 08/03/16 05:13) Past Medical History - Social History Smoking Status: Unknown if Ever Smoked Family History: Hypertension Patient has suicidal ideation: No Patient has homicidal ideation: No - Past Medical History Cardiac Medical History: Reports: Hx Hypertension Pulmonary Medical History: Reports: Hx Pneumonia Renal/ Medical History: Denies: Hx Peritoneal Dialysis GI Medical History: Reports: Hx Gastroesophageal Reflux Disease Musculoskeletal Medical History: Reports Hx Arthritis Psychiatric Medical History: Reports: Hx Depression Review of Systems - Review of Systems Notes: REVIEW OF SYSTEMS: CONSTITUTIONAL : See HPI. EENT: Denies eye, ear, throat, or mouth pain, discharge, or symptoms. Denies nasal or sinus congestion. CARDIOVASCULAR: Denies chest pain. RESPIRATORY: See HPI. GASTROINTESTINAL: Denies nausea, vomiting, and diarrhea. Denies abdominal pain. Denies constipation. GENITOURINARY: Denies difficulty urinating, burning, blood in urine, urgency or frequency. MUSCULOSKELETAL: Denies neck and back pain. Denies joint pain or swelling. SKIN: Denies rash, itchiness, or lesions HEMATOLOGIC : Denies easy bruising or bleeding. LYMPHATIC: Denies swollen, painful, enlarged glands. NEUROLOGICAL: Denies no numbness or tingling denies weakness. Denies headache. Denies altered mental status. Denies alteration in speech. PSYCHIATRIC: Denies stress, anxiety, alteration in sleep patterns, or depression. All other systems reviewed and negative. Physical Exam - Vital signs Vitals: Pulse Ox 96 05/31/19 15:20 - Notes Notes: PHYSICAL EXAMINATION: GENERAL: Appears well, healthy, well-nourished, no acute distress. HEAD: Normocephalic, atraumatic. EYES: PERRL, conjunctiva normal, all extraocular movements intact, sclera nonicteric ENT: Moist mucous membranes. NECK: Supple, no noticeable swelling, redness, rash. Normal range of motion. LUNGS: Equal breath sounds bilaterally and clear to auscultation. No wheezes rales or rhonchi. CARDIOVASCULAR: S1-S2, tachycardic, regular rhythm. Radial pulses 2+, normal. ABDOMEN: Normoactive bowel sounds. Soft, nontender, no guarding, no rebound tenderness, and no masses palpated. EXTREMITIES: Normal strength and range of motion, no pitting or edema. No cyanosis. NEUROLOGICAL: Moves all extremities upon command. Strength 5/5 in all extremities. PSYCH: Normal mood, normal affect. SKIN: Warm, dry. No rash, lesions, ulcerations noted. Normal skin turgor. Course - Re-evaluation Re-evalutation: 05/31/19 19:34 Patient states that she still does not feel very well. I spoke with Dr. Rodrigo Cordero, who is on-call for Dr. Jackman. Patient will be admitted to the telemetry unit. Hematology shows a mild leukocytosis of 10,900. Chemistries are unremarkable. Urinalysis is unremarkable. Patient still tachycardic even after receiving a liter of IV fluids. - Vital Signs Vital signs: Temp Pulse Resp BP Pulse Ox 98.0 F 23 H 136/86 H 95 05/31/19 20:09 05/31/19 21:01 05/31/19 21:01 05/31/19 21:01 - Laboratory Result Diagrams: 05/31/19 14:59 05/31/19 14:59 Laboratory results interpreted by me: 05/31/19 05/31/19 05/31/19 14:59 14:59 18:13 WBC 10.9 H MCV 98 H MCH 33.6 H Sodium 136.7 L Urine Urobilinogen 4.0 H Discharge - Discharge Clinical Impression: Weakness, Dehydration Condition: Stable Disposition: ADMITTED OBSERVATION Admitting Provider: Augustina Unit Admitted: Telemetry
[2019-05-31] MEDS ORDERED: NORMAL SALINE 1000 ML 1,000 ML IV ONE (16:55)
--- NOTE | 2019-05-31 17:43 | RADIOLOGY REPORT (SQ) ---
EXAM DESCRIPTION: CT CHEST WITHOUT COMPLETED DATE/TIME: 05/31/2019 5:27 pm REASON FOR STUDY: shortness of breath COMPARISON: Chest x-ray dated 05/31/2019. TECHNIQUE: CT scan performed of the chest without intravenous contrast. Images reviewed with lung, soft tissue and bone windows. Reconstructed coronal and sagittal MPR images reviewed. All images st ored on PACS. All CT scanners at this facility use dose modulation, iterative reconstruction, and/or weight based d osing when appropriate to reduce radiation dose to as low as reasonably achievable (ALARA). [facility]: Dose Right [facility]: CareDose [facility]: Dose Right [facility]: Teradose 4D [facility]: [employer] RADIATION DOSE: CT Rad equipment meets quality standard of care and radiation dose reduction techniq ues were employed. CTDIvol: 16.0 mGy. DLP: 568 mGy-cm. mGy. LIMITATIONS: No technical limitations. FINDINGS: LUNGS AND PLEURA: Eventration of the right hemidiaphragm. 5 mm nodule in the right lower lobe. Mild scarring in the lung bases. No infiltrates. No pleural effusions or pleural calcificati ons. HILAR AND MEDIASTINAL STRUCTURES: No identified masses or abnormal nodes. No obvious aneurysm. HEART AND VASCULAR STRUCTURES: No aneurysm. No pericardial effusion. UPPER ABDOMEN: No significant findings. Limited exam. THYROID AND OTHER SOFT TISSUES: Heterogenous thyroid with nodules in the isthmus and right lobe. No adenopathy. BONES: No significant finding. HARDWARE: None in the chest. OTHER: No other significant findings. IMPRESSION: 1. 5 MM NODULE IN THE RIGHT LOWER LOBE. FOLLOW-UP CLINICALLY INDICATED. MILD SCARRING IN THE TIGRE G BASES. NO ACUTE FINDINGS. 2. THYROID NODULES. 3. NO OTHER SIGNIFICANT FINDING ON NON-CONTRASTED CHEST CT. COMMENT: [place] CRITERIA FOR FOLLOW-UP OF PULMONARY NODULES Incidentally detected new nodules in persons 35 or older. HIGH RISK: History of smoking or other known risk factors. <6 mm single solid nodule: LOW RISK: no routine followup. HIGH RISK: optional CT 12 mo. TECHNICAL DOCUMENTATION: JOB ID: [id number] Quality ID # [id number]: Final reports with documentation of one or more dose reduction techniques (e.g., Au tomated exposure control, adjustment of the mA and/or kV according to patient size, use of iterative reconstruction technique) 2010 [employer]- All Rights Reserved Reading location - IP/workstation name: [email or web address]
[2019-05-31 18:36] LABS: APPEARANCE,URINE CLEAR; BILIRUBIN,URINE NEGATIVE (NEGATIVE); COLOR,URINE YELLOW; GLUCOSE, URINE NEGATIVE (NEGATIVE); KETONES,URINE NEGATIVE (NEGATIVE); LEUKOCYTE ESTERASE,URINE NEGATIVE (NEGATIVE); NITRITE,URINE NEGATIVE (NEGATIVE); PROTEIN,URINE NEGATIVE (NEGATIVE); URINE SPECIFIC GRAVITY 1.024
[2019-05-31] MEDS: NORMAL SALINE 1000 ML 1,000 ML IV PRN (23:29)
[2019-06-01] MEDS ORDERED: HYDROCODONE/ACETAMINOPHEN 10-325 MG TABLET PO PRN (00:02)
[2019-06-01] MEDS ORDERED: PREGABALIN 50 MG CAPSULE PO ONE (00:15)
[2019-06-01] MEDS ORDERED: ONDANSETRON HCL INJ/PF 4 MG/2 ML SDV ONE (03:34)
[2019-06-01] MEDS: NORMAL SALINE 1000 ML 1,000 ML IV PRN ×2 (09:30→19:23)
[2019-06-01] MEDS ORDERED: HYDROCHLOROTHIAZIDE 12.5 MG TABLET PO SCH (10:00)
[2019-06-01] MEDS: LOSARTAN POTASSIUM 50 MG TABLET PO SCH (10:07)
[2019-06-01] MEDS: LORAZEPAM 1 MG TABLET PO SCH ×2 (10:08→17:42)
[2019-06-01] MEDS: AMLODIPINE BESYLATE 10 MG TABLET PO SCH (10:08)
[2019-06-01] MEDS: LEVOFLOXACIN 500 MG TABLET PO SCH (10:08)
[2019-06-01] MEDS: ONDANSETRON HCL INJ/PF 4 MG/2 ML SDV IV PRN (10:09)
--- NOTE | 2019-06-01 17:57 | PDOC H&P ---
History of Present Illness Admission Date/PCP: 05/31/19 20:36 SHANIA ARDON MD Patient complains of: Difficulty with breathing History of Present Illness: CORNELIA AMAAY is a 83 year old female patient of Dr. Ardon who presented to the ED with complain about ongoing difficulty with breathing and generalized weakness. She was seen at her PCP office recently for possible infectious origin for her symptoms and started on Levofloxacin therapy. She reported worsening weakness after six days of therapy necessitating her coming to the ED for further evaluation. She reported associated poor appetite and oral intake. She denied nausea, vomiting, or abdominal pain. No fever or chills. No dysuria, hematuria or flank pain. Her initial ED evaluation was unrevealing for any significant acute abnormality. She was advised admission to observation bed in view of her age, persistence of her symptoms despite outpatient therapy. Her morbidities are as listed below. Past Medical History Cardiac Medical History: Reports: Hypertension Pulmonary Medical History: Reports: Pneumonia Neurological Medical History: Reports: Seizures GI Medical History: Reports: Gastroesophageal Reflux Disease Musculoskeltal Medical History: Reports: Arthritis Psychiatric Medical History: Reports: Depression Social History Smoking Status: Unknown if Ever Smoked Frequency of Alcohol Use: None Drugs: None Hx Prescription Drug Abuse: No - Advance Directive Resuscitation Status: Full Code Family History Family History: Hypertension Parental Family History Reviewed: Yes Children Family History Reviewed: Yes Sibling(s) Family History Reviewed.: Yes Medication/Allergy Home Medications: Lorazepam [Ativan 1 mg Tablet] 1 mg PO Q12 07/31/16 Amlodipine Besylate [Norvasc 10 mg Tablet] 10 mg PO DAILY #90 tablet 08/03/16 Hydrocodone Bit/Acetaminophen [Hydrocodon-Acetaminophn 10-325] 1 tab PO Q8HP PRN 05/31/19 Losartan/Hydrochlorothiazide [Hyzaar 100-12.5 Tablet] 1 tab PO DAILY 05/31/19 Pregabalin [Lyrica 50 Mg Capsule] 50 mg PO QHS 05/31/19 Dexlansoprazole [Dexilant 60 mg Capsule] 60 mg PO DAILY 06/01/19 Levofloxacin [Levaquin 750 mg Tablet] 750 mg PO DAILY MDD filled 05/26 for 10 day supply 06/01/19 Omeprazole 20 mg PO DAILY 06/01/19 Travoprost 1 drop OS QHS 06/01/19 Allergies/Adverse Reactions: hydralazine Allergy (Intermediate, Verified 06/01/19 03:46) labetalol Allergy (Mild, Verified 06/01/19 03:37) metoprolol Allergy (Mild, Verified 06/01/19 03:46) Review of Systems Constitutional: PRESENT: anorexia, fatigue, weakness. ABSENT: chills, fever(s), headache(s), weight gain, weight loss Eyes: ABSENT: visual disturbances Ears: ABSENT: hearing changes Cardiovascular: ABSENT: chest pain, dyspnea on exertion, edema, orthropnea, pa lpitations Respiratory: ABSENT: cough, hemoptysis Gastrointestinal: ABSENT: abdominal pain, constipation, diarrhea, hematemesis, hematochezia, nausea, vomiting Genitourinary: ABSENT: dysuria, hematuria Musculoskeletal: ABSENT: joint swelling Integumentary: ABSENT: rash, wounds Neurological: ABSENT: abnormal gait, abnormal speech, confusion, dizziness, focal weakness, syncope Psychiatric: ABSENT: anxiety, depression, homidical ideation, suicidal ideation Endocrine: ABSENT: cold intolerance, heat intolerance, polydipsia, polyuria Hematologic/Lymphatic: ABSENT: easy bleeding, easy bruising, lymphadenopathy Allergic/Immunologic: ABSENT: seasonal rhinorrhea Physical Exam Vital Signs: Temp Pulse Resp BP Pulse Ox 98.1 F 97 28 H 122/85 93 06/01/19 08:12 06/01/19 08:12 06/01/19 08:12 06/01/19 08:12 06/01/19 08:12 Intake & Output 05/31/19 06/01/19 06/02/19 06:59 06:59 06:59 Intake Total 1200 Balance 1200 Weight 80.8 kg General appearance: PRESENT: mild distress - on supplemental oxygen via nasal cannula, obese Head exam: PRESENT: atraumatic, normocephalic Eye exam: PRESENT: conjunctiva pink, EOMI, PERRLA. ABSENT: scleral icterus Ear exam: PRESENT: normal external ear exam Mouth exam: PRESENT: dry mucosa, tongue midline Teeth exam: PRESENT: poor dentation Neck exam: PRESENT: full ROM. ABSENT: carotid bruit, JVD, lymphadenopathy, thyromegaly Respiratory exam: PRESENT: decreased breath sounds - at lung bases Cardiovascular exam: PRESENT: RRR, +S1, +S2. ABSENT: diastolic murmur, rubs, systolic murmur Vascular exam: PRESENT: pallor GI/Abdominal exam: PRESENT: normal bowel sounds, soft. ABSENT: distended, guarding, mass, organolmegaly, rebound, tenderness Rectal exam: PRESENT: deferred Extremities exam: ABSENT: pedal edema Neurological exam: PRESENT: alert, awake, oriented to person, oriented to place, oriented to time, oriented to situation, CN II-XII grossly intact. ABSENT: motor sensory deficit Psychiatric exam: PRESENT: appropriate affect, normal mood. ABSENT: homicidal ideation, suicidal ideation Skin exam: PRESENT: dry, intact, warm. ABSENT: cyanosis, rash Results Laboratory Results: 05/31/19 14:59 05/31/19 14:59 05/31/19 05/31/19 05/31/19 14:59 14:59 18:13 WBC 10.9 H RBC 4.43 Hgb 14.9 Hct 43.4 MCV 98 H MCH 33.6 H MCHC 34.3 RDW 13.1 Plt Count 335 Seg Neutrophils % 47.4 Sodium 136.7 L Potassium 3.9 Chloride 100 Carbon Dioxide 25 Anion Gap 12 BUN 14 Creatinine 0.75 Est GFR ( Amer) > 60 Glucose 94 Calcium 9.7 Total Bilirubin 0.6 AST 31 Alkaline Phosphatase 70 Total Protein 7.5 Albumin 4.1 Urine Color YELLOW Urine Appearance CLEAR Urine pH 6.0 Ur Specific [place] 1.024 Urine Protein NEGATIVE Urine Glucose (UA) NEGATIVE Urine Ketones NEGATIVE Urine Blood NEGATIVE Urine Nitrite NEGATIVE Ur Leukocyte Esterase NEGATIVE Urine WBC (Auto) 1 Urine RBC (Auto) 1 Impressions: Chest X-Ray 05/31/19 15:15 IMPRESSION: NO ACUTE RADIOGRAPHIC FINDING IN THE CHEST. Chest CT 05/31/19 16:54 IMPRESSION: 1. 5 MM NODULE IN THE RIGHT LOWER LOBE. FOLLOW-UP CLINICALLY INDICATED. MILD SCARRING IN THE LUNG BASES. NO ACUTE FINDINGS. 2. THYROID NODULES. 3. NO OTHER SIGNIFICANT FINDING ON NON-CONTRASTED CHEST CT. Assessment & Plan - Diagnosis (1) Malaise and fatigue Is this a current diagnosis for this admission?: Yes Plan: See covering admitting attending physician orders for details about care plan. (2) Dehydration Is this a current diagnosis for this admission?: Yes Plan: See covering admitting attending physician orders for details about care plan. (3) HTN (hypertension) Qualifiers: Hypertension type: essential hypertension Qualified Code(s): I10 - Essential (primary) hypertension Is this a current diagnosis for this admission?: Yes Plan: See covering admitting attending physician orders for details about care plan. (4) Chronic pain syndrome Is this a current diagnosis for this admission?: Yes Plan: See covering admitting attending physician orders for details about care plan. (5) Nodule of lower lobe of right lung Is this a current diagnosis for this admission?: Yes Plan: See covering admitting attending physician orders for details about care plan. - Time Time Spent: 50 to 70 Minutes Medications reviewed and adjusted accordingly: Yes Anticipated discharge: Home with Homehealth Within: Other - Inpatient Certification Based on my medical assessment, after consideration of the patient's comorbidities, presenting symptoms, or acuity I expect that the services needed warrant INPATIENT care.: No I certify that my determination is in accordance with my understanding of Medicare's requirements for reasonable and necessary INPATIENT services [42 CFR 412.3e].: No Medical Necessity: Significant Comorbidiites Make Outpatient Treatment Too Risky, Need Close Monitoring Due to Risk of Patient Decompensation, Need For IV Fluids, Risk of Complication if Not Cared For in Hospital, Risk of Diagnosis Which Will Require Inpatient Eval/Care/Monitoring 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
[2019-06-01] MEDS ORDERED: (PENDING PHARMACY ID) (Travoprost [Travoprost] 1 DROP) OS SCH (22:00)
[2019-06-01] MEDS: PREGABALIN 50 MG CAPSULE PO SCH (22:08)
[2019-06-01] MEDS: LATANOPROST 0.005% OPH SOLN 2.5 ML OS SCH (22:08)
[2019-06-02] MEDS: ONDANSETRON HCL INJ/PF 4 MG/2 ML SDV IV PRN ×2 (00:37→08:22)
[2019-06-02] MEDS: NORMAL SALINE 1000 ML 1,000 ML IV PRN ×2 (06:52→17:45)
[2019-06-02] MEDS: LEVOFLOXACIN 500 MG TABLET PO SCH (09:46)
[2019-06-02] MEDS: LORAZEPAM 1 MG TABLET PO SCH ×2 (09:46→17:43)
[2019-06-02] MEDS: LOSARTAN POTASSIUM 50 MG TABLET PO SCH (09:46)
[2019-06-02] MEDS: AMLODIPINE BESYLATE 10 MG TABLET PO SCH (09:46)
--- NOTE | 2019-06-02 21:04 | PDOC PROGRESS REPORT ---
Subjective Progress Note for:: 06/02/19 Subjective:: Patient seen by the bedside she was admitted over the weekend, she remained very fatigued Reason For Visit: WEAKNESS,DEHYDRATION Physical Exam Vital Signs: Temp Pulse Resp BP Pulse Ox 97.3 F 107 H 17 120/84 95 06/02/19 19:40 06/02/19 19:40 06/02/19 19:40 06/02/19 19:40 06/02/19 19:40 Intake & Output 06/01/19 06/02/19 06/03/19 06:59 06:59 06:59 Intake Total 1200 4220 1240 Output Total 225 Balance 1200 4220 1015 Weight 80.8 kg 81.2 kg General appearance: PRESENT: no acute distress Eye exam: PRESENT: PERRLA Respiratory exam: PRESENT: clear to auscultation keith Cardiovascular exam: PRESENT: +S1, +S2 GI/Abdominal exam: PRESENT: soft Neurological exam: PRESENT: alert, CN II-XII grossly intact Results Laboratory Results: 05/31/19 14:59 05/31/19 14:59 Impressions: Chest X-Ray 05/31/19 15:15 IMPRESSION: NO ACUTE RADIOGRAPHIC FINDING IN THE CHEST. Chest CT 05/31/19 16:54 IMPRESSION: 1. 5 MM NODULE IN THE RIGHT LOWER LOBE. FOLLOW-UP CLINICALLY INDICATED. MILD SCARRING IN THE LUNG BASES. NO ACUTE FINDINGS. 2. THYROID NODULES. 3. NO OTHER SIGNIFICANT FINDING ON NON-CONTRASTED CHEST CT. Assessment & Plan - Diagnosis (1) Dehydration Is this a current diagnosis for this admission?: Yes (2) Weakness Is this a current diagnosis for this admission?: Yes - Time Time Spent with patient: 15-24 minutes Level of Care: TELE
[2019-06-02 21:46] LABS: ABSOLUTE BASOPHILS # (AUTO) 0.1 10^3/uL (0.0-0.2); ABSOLUTE EOSINOPHILS # (AUTO) 0.1 10^3/uL (0.0-0.6); ABSOLUTE LYMPHOCYTES (AUTO) 2.4 10^3/uL (0.5-4.7); ABSOLUTE MONOCYTES (AUTO) 0.7 10^3/uL (0.1-1.4); ABSOLUTE NEUT (AUTO) 5.3 10^3/uL (1.7-8.2); BASOPHILS % (AUTO) 1.1 % (0-2); EOSINOPHILS % (AUTO) 0.8 % (0-6); HEMATOCRIT 40.1 % (36.0-47.0); LYMPHOCYTES % (AUTO) 27.8 % (13-45); MEAN CORPUSCULAR HEMOGLOBIN 33.6 pg (27.0-33.4); MEAN CORPUSCULAR VOLUME 96 fl (80-97); MONOCYTES % (AUTO) 8.6 % (3-13); PLATELET COUNT 336 10^3/uL (150-450); RED BLOOD COUNT 4.17 10^6/uL (3.72-5.28); RED CELL DISTRIBUTION WIDTH 13.1 % (11.5-14.0); SEGMENTED NEUTROPHILS % (AUTO) 61.7 % (42-78); TOTAL CELLS COUNTED % (AUTO) 100 %; WHITE BLOOD COUNT 8.6 10^3/uL (4.0-10.5)
[2019-06-02] MEDS: PREGABALIN 50 MG CAPSULE PO SCH (21:55)
[2019-06-02] MEDS: LATANOPROST 0.005% OPH SOLN 2.5 ML OS SCH (21:56)
[2019-06-02 22:10] LABS: ALBUMIN 3.6 g/dL (3.5-5.0); ALKALINE PHOSPHATASE 69 U/L (38-126); ANION GAP 8 (5-19); ASPARTATE AMINO TRANSFERASE 30 U/L (14-36); BILIRUBIN,TOTAL 0.3 mg/dL (0.2-1.3); BLOOD UREA NITROGEN 11 mg/dL (7-20); CALCIUM 9.5 mg/dL (8.4-10.2); CARBON DIOXIDE 25 mmol/L (22-30); CHLORIDE 106 mmol/L (98-107); GLUCOSE 102 mg/dL (75-110); POTASSIUM 3.7 mmol/L (3.6-5.0); TOTAL PROTEIN 6.6 g/dL (6.3-8.2)
[2019-06-03] MEDS: ONDANSETRON HCL INJ/PF 4 MG/2 ML SDV IV PRN ×2 (01:54→10:10)
[2019-06-03 05:27] LABS: ABSOLUTE BASOPHILS # (AUTO) 0.1 10^3/uL (0.0-0.2); ABSOLUTE EOSINOPHILS # (AUTO) 0.1 10^3/uL (0.0-0.6); ABSOLUTE LYMPHOCYTES (AUTO) 2.2 10^3/uL (0.5-4.7); ABSOLUTE MONOCYTES (AUTO) 0.8 10^3/uL (0.1-1.4); ABSOLUTE NEUT (AUTO) 4.8 10^3/uL (1.7-8.2); BASOPHILS % (AUTO) 0.8 % (0-2); EOSINOPHILS % (AUTO) 0.8 % (0-6); HEMATOCRIT 39.8 % (36.0-47.0); HEMOGLOBIN 14.1 g/dL (12.0-15.5); MEAN CORPUSCULAR HGB CONC 35.5 g/dL (32.0-36.0); MEAN CORPUSCULAR VOLUME 96 fl (80-97); MONOCYTES % (AUTO) 10.2 % (3-13); PLATELET COUNT 313 10^3/uL (150-450); RED BLOOD COUNT 4.15 10^6/uL (3.72-5.28); RED CELL DISTRIBUTION WIDTH 12.9 % (11.5-14.0); SEGMENTED NEUTROPHILS % (AUTO) 60.2 % (42-78); TOTAL CELLS COUNTED % (AUTO) 100 %; WHITE BLOOD COUNT 7.9 10^3/uL (4.0-10.5)
[2019-06-03 05:53] LABS: ALBUMIN 3.7 g/dL (3.5-5.0); ALKALINE PHOSPHATASE 73 U/L (38-126); ANION GAP 11 (5-19); ASPARTATE AMINO TRANSFERASE 30 U/L (14-36); BILIRUBIN,DIRECT 0.3 mg/dL (0.0-0.4); BILIRUBIN,TOTAL 0.5 mg/dL (0.2-1.3); BLOOD UREA NITROGEN 11 mg/dL (7-20); CALCIUM 9.4 mg/dL (8.4-10.2); CARBON DIOXIDE 22 mmol/L (22-30); CHLORIDE 106 mmol/L (98-107); GLUCOSE 106 mg/dL (75-110); POTASSIUM 3.7 mmol/L (3.6-5.0); TOTAL PROTEIN 6.8 g/dL (6.3-8.2)
[2019-06-03] MEDS: NORMAL SALINE 1000 ML 1,000 ML IV PRN ×2 (09:00→23:18)
[2019-06-03] MEDS: LOSARTAN POTASSIUM 50 MG TABLET PO SCH (10:11)
[2019-06-03] MEDS: LORAZEPAM 1 MG TABLET PO SCH ×2 (10:11→17:38)
[2019-06-03] MEDS: AMLODIPINE BESYLATE 10 MG TABLET PO SCH (10:12)
[2019-06-03] MEDS: LEVOFLOXACIN 500 MG TABLET PO SCH (10:12)
--- NOTE | 2019-06-03 14:16 | PDOC CONSULTATION ---
Consultation Consult Date: 06/03/19 Provider Consulted: ELDA JULIAN Consult reason:: nausea and vomiting. chronic History of Present Illness Admission Date/PCP: 05/31/19 20:36 SHANIA ARDON MD History of Present Illness: CORNELIA AMAYA is a 83 year old female Asked to see this patient has been having nausea and vomiting chronic in nature and does not have to follow meals some early satiety as well no melena patient says has GERD and regurgitation referred for EGD will schedule for patient Past Medical History Cardiac Medical History: Reports: Hypertension Pulmonary Medical History: Reports: Pneumonia Neurological Medical History: Reports: Seizures GI Medical History: Reports: Gastroesophageal Reflux Disease Musculoskeltal Medical History: Reports: Arthritis Psychiatric Medical History: Reports: Depression Social History Smoking Status: Unknown if Ever Smoked Frequency of Alcohol Use: None Drugs: None Hx Prescription Drug Abuse: No - Advance Directive Resuscitation Status: Full Code Family History Family History: Hypertension Parental Family History Reviewed: Yes Children Family History Reviewed: Unknown Sibling(s) Family History Reviewed.: Unknown Medication/Allergy Home Medications: Lorazepam [Ativan 1 mg Tablet] 1 mg PO Q12 07/31/16 Amlodipine Besylate [Norvasc 10 mg Tablet] 10 mg PO DAILY #90 tablet 08/03/16 Hydrocodone Bit/Acetaminophen [Hydrocodon-Acetaminophn 10-325] 1 tab PO Q8HP PRN 05/31/19 Losartan/Hydrochlorothiazide [Hyzaar 100-12.5 Tablet] 1 tab PO DAILY 05/31/19 Pregabalin [Lyrica 50 Mg Capsule] 50 mg PO QHS 05/31/19 Dexlansoprazole [Dexilant 60 mg Capsule] 60 mg PO DAILY 06/01/19 Levofloxacin [Levaquin 750 mg Tablet] 750 mg PO DAILY MDD filled 05/26 for 10 day supply 06/01/19 Omeprazole 20 mg PO DAILY 06/01/19 Travoprost 1 drop OS QHS 06/01/19 Allergies/Adverse Reactions: hydralazine Allergy (Intermediate, Verified 06/01/19 03:46) labetalol Allergy (Mild, Verified 06/01/19 03:37) metoprolol Allergy (Mild, Verified 06/01/19 03:46) Review of Systems Constitutional: ABSENT: fever(s), headache(s), night sweats, weakness Eyes: ABSENT: visual disturbances Ears: ABSENT: hearing changes Nose, Mouth, and Throat: ABSENT: mouth pain, sore throat Cardiovascular: ABSENT: edema, orthropnea, palpitations Respiratory: ABSENT: dyspnea, hemoptysis Gastrointestinal: PRESENT: nausea, vomiting. ABSENT: diarrhea, dysphagia, heartburn Genitourinary: ABSENT: dysuria, hematuria Musculoskeletal: ABSENT: deformity, joint swelling Integumentary: ABSENT: lesions, pruritus Neurological: ABSENT: focal weakness, syncope, tingling, tremor(s) Endocrine: ABSENT: polydipsia, polyphagia, polyuria Hematologic/Lymphatic: ABSENT: easy bruising Physical Exam Vital Signs: Temp Pulse Resp BP Pulse Ox 98.9 F 100 20 144/99 H 98 06/03/19 12:00 06/03/19 12:00 06/03/19 12:00 06/03/19 12:00 06/03/19 12:00 Intake & Output 06/02/19 06/03/19 06/04/19 06:59 06:59 06:59 Intake Total 4220 2620 240 Output Total 225 Balance 4220 2395 240 Weight 81.2 kg 78.4 kg General appearance: PRESENT: well-developed, well-nourished Head exam: PRESENT: normocephalic Eye exam: PRESENT: EOMI, PERRLA. ABSENT: nystagmus, scleral icterus Mouth exam: PRESENT: moist. ABSENT: neck supple Throat exam: ABSENT: tonsillar exudate, tonsillogmegaly Neck exam: ABSENT: meningismus, tenderness, thyromegaly Respiratory exam: PRESENT: symmetrical. ABSENT: tachypnea, unlabored, wheezes Cardiovascular exam: PRESENT: RRR, +S1, +S2 GI/Abdominal exam: PRESENT: soft. ABSENT: rebound, rigid, tenderness Extremities exam: ABSENT: joint swelling Musculoskeletal exam: PRESENT: full ROM Neurological exam: PRESENT: alert, awake, oriented to time, CN II-XII grossly intact Focused psych exam: ABSENT: restlessness Skin exam: PRESENT: normal color. ABSENT: mottled, pallor, urticaria, vesicles Results Laboratory Results: 06/03/19 04:40 06/03/19 04:40 06/02/19 06/02/19 06/03/19 21:36 21:36 04:40 WBC 8.6 7.9 RBC 4.17 4.15 Hgb 14.0 14.1 Hct 40.1 39.8 MCV 96 96 MCH 33.6 H 34.0 H MCHC 35.0 35.5 RDW 13.1 12.9 Plt Count 336 313 Seg Neutrophils % 61.7 60.2 Sodium 138.7 Potassium 3.7 Chloride 106 Carbon Dioxide 25 Anion Gap 8 BUN 11 Creatinine 0.76 Est GFR ( Amer) > 60 Glucose 102 Calcium 9.5 Total Bilirubin 0.3 AST 30 Alkaline Phosphatase 69 Total Protein 6.6 Albumin 3.6 06/03/19 04:40 WBC RBC Hgb Hct MCV MCH MCHC RDW Plt Count Seg Neutrophils % Sodium 138.7 Potassium 3.7 Chloride 106 Carbon Dioxide 22 Anion Gap 11 BUN 11 Creatinine 0.66 Est GFR ( Amer) > 60 Glucose 106 Calcium 9.4 Total Bilirubin 0.5 AST 30 Alkaline Phosphatase 73 Total Protein 6.8 Albumin 3.7 Impressions: Chest X-Ray 05/31/19 15:15 IMPRESSION: NO ACUTE RADIOGRAPHIC FINDING IN THE CHEST. Chest CT 05/31/19 16:54 IMPRESSION: 1. 5 MM NODULE IN THE RIGHT LOWER LOBE. FOLLOW-UP CLINICALLY INDICATED. MILD SCARRING IN THE LUNG BASES. NO ACUTE FINDINGS. 2. THYROID NODULES. 3. NO OTHER SIGNIFICANT FINDING ON NON-CONTRASTED CHEST CT. Assessment & Plan - Diagnosis (1) Nausea & vomiting Plan: will schedule EGD Risks, benefits and alternatives are discussed with the patient will rule out gastric outlet obstruction rule out for H.Pylori and possibly gastroparesis - Time Time Spent: 50 to 70 Minutes
--- NOTE | 2019-06-03 19:21 | PDOC PROGRESS REPORT ---
Subjective Progress Note for:: 06/03/19 Subjective:: Patient continues to vomit, she is not able to keep any food down, she was brought in for observation, GI will be consulted for EGD Reason For Visit: WEAKNESS,DEHYDRATION Physical Exam Vital Signs: Temp Pulse Resp BP Pulse Ox 98.9 F 90 20 144/99 H 98 06/03/19 12:00 06/03/19 14:00 06/03/19 12:00 06/03/19 12:00 06/03/19 12:00 Intake & Output 06/02/19 06/03/19 06/04/19 06:59 06:59 06:59 Intake Total 4220 2620 240 Output Total 225 Balance 4220 2395 240 Weight 81.2 kg 78.4 kg General appearance: PRESENT: no acute distress Eye exam: PRESENT: PERRLA Respiratory exam: PRESENT: clear to auscultation keith Cardiovascular exam: PRESENT: +S1, +S2 GI/Abdominal exam: PRESENT: soft Neurological exam: PRESENT: alert, CN II-XII grossly intact Results Laboratory Results: 06/03/19 04:40 06/03/19 04:40 06/02/19 06/02/19 06/03/19 21:36 21:36 04:40 WBC 8.6 7.9 RBC 4.17 4.15 Hgb 14.0 14.1 Hct 40.1 39.8 MCV 96 96 MCH 33.6 H 34.0 H MCHC 35.0 35.5 RDW 13.1 12.9 Plt Count 336 313 Seg Neutrophils % 61.7 60.2 Sodium 138.7 Potassium 3.7 Chloride 106 Carbon Dioxide 25 Anion Gap 8 BUN 11 Creatinine 0.76 Est GFR ( Amer) > 60 Glucose 102 Calcium 9.5 Total Bilirubin 0.3 AST 30 Alkaline Phosphatase 69 Total Protein 6.6 Albumin 3.6 06/03/19 04:40 WBC RBC Hgb Hct MCV MCH MCHC RDW Plt Count Seg Neutrophils % Sodium 138.7 Potassium 3.7 Chloride 106 Carbon Dioxide 22 Anion Gap 11 BUN 11 Creatinine 0.66 Est GFR ( Amer) > 60 Glucose 106 Calcium 9.4 Total Bilirubin 0.5 AST 30 Alkaline Phosphatase 73 Total Protein 6.8 Albumin 3.7 Impressions: Chest X-Ray 05/31/19 15:15 IMPRESSION: NO ACUTE RADIOGRAPHIC FINDING IN THE CHEST. Chest CT 05/31/19 16:54 IMPRESSION: 1. 5 MM NODULE IN THE RIGHT LOWER LOBE. FOLLOW-UP CLINICALLY INDICATED. MILD SCARRING IN THE LUNG BASES. NO ACUTE FINDINGS. 2. THYROID NODULES. 3. NO OTHER SIGNIFICANT FINDING ON NON-CONTRASTED CHEST CT. Assessment & Plan - Diagnosis (1) Dehydration Is this a current diagnosis for this admission?: Yes (2) Weakness Is this a current diagnosis for this admission?: Yes (3) Intractable vomiting Qualifiers: Vomiting type: unspecified Nausea presence: with nausea Qualified Code(s): R11.2 - Nausea with vomiting, unspecified Is this a current diagnosis for this admission?: Yes Plan: GI consulted - Time Time Spent with patient: 15-24 minutes Level of Care: MEDICAL
[2019-06-03] MEDS: PREGABALIN 50 MG CAPSULE PO SCH (21:28)
[2019-06-03] MEDS: LATANOPROST 0.005% OPH SOLN 2.5 ML OS SCH (21:28)
[2019-06-04] MEDS ORDERED: DIPHENHYDRAMINE HCL 50 MG/ML VIAL ONE (07:20)
[2019-06-04] MEDS ORDERED: ONDANSETRON HCL INJ/PF 4 MG/2 ML SDV ONE (07:20)
[2019-06-04] MEDS ORDERED: FLUMAZENIL INJ 0.5 MG/5 ML VIAL ONE (07:20)
[2019-06-04] MEDS ORDERED: NALOXONE HCL INJ/PF 0.4 MG/1 ML SDV ONE (07:20)
[2019-06-04] MEDS ORDERED: GLUCAGON,HUMAN RECOMB 1 MG INJ ONE (07:21)
[2019-06-04] MEDS ORDERED: EPINEPHRINE INJ 1 MG/10 ML DISP.SYRIN ONE (07:21)
[2019-06-04] MEDS: MIDAZOLAM 2 MG/2 ML INJ ONE ×5 (09:11→09:28)
[2019-06-04] MEDS: FENTANYL CITRATE INJ/PF 100 MCG/2 ML AMPUL ONE ×3 (09:13→09:26)
--- NOTE | 2019-06-04 09:40 | Operative Report ---
Operative Report DATE OF SURGERY: 06/04/19 Operative Report: The risks benefits and alternatives of the procedure explained to the patient in detail and informed consent is obtained.A GIF Olympus video scope was inserted into the patient's mouth and hypopharynx, the esophagus is identified intubated and insufflated, the scope was then advanced through the esophagus stomach and duodenum, retroflexion maneuver is done, the esophagus stomach and first and second portions of the duodenum examined PREOPERATIVE DIAGNOSIS: Chronic nausea and vomiting POSTOPERATIVE DIAGNOSIS: Schatzki's ring status post breakage. Hiatal hernia. Gastritis biopsies. No gastric outlet obstruction. No ulcers noted OPERATION: EGD with biopsy SURGEON: ELDA JULIAN ANESTHESIA: Moderate Sedation - 5 mg of Versed, 50 mics of fentanyl. Conscious sedation monitoring time 30 minutes. TISSUE REMOVED OR ALTERED: As noted above. COMPLICATIONS: None. ESTIMATED BLOOD LOSS: None. INTRAOPERATIVE FINDINGS: As noted above. PROCEDURE: Patient tolerated the procedure well. No immediate postprocedure complications are noted. Patient is sent back to her room in good condition. Resume regular diet. Resume previous activity level. Wait on the biopsy. Antiemetics as needed. May need gastric emptying scan. Start PPI Follow-up as outpatient
[2019-06-04] MEDS: LORAZEPAM 1 MG TABLET PO SCH ×2 (10:35→17:09)
[2019-06-04] MEDS: AMLODIPINE BESYLATE 10 MG TABLET PO SCH (10:35)
[2019-06-04] MEDS: LEVOFLOXACIN 500 MG TABLET PO SCH (10:35)
[2019-06-04] MEDS: NORMAL SALINE 1000 ML 1,000 ML IV PRN (10:35)
[2019-06-04] MEDS: LOSARTAN POTASSIUM 50 MG TABLET PO SCH (10:35)
--- NOTE | 2019-06-04 18:11 | PDOC PROGRESS REPORT ---
Subjective Progress Note for:: 06/04/19 Subjective:: Patient seen by the bedside, she underwent upper endoscopy, no particular mucosal lesion was demonstrated, found to have nonspecific gastritis Reason For Visit: WEAKNESS,DEHYDRATION Physical Exam Vital Signs: Temp Pulse Resp BP Pulse Ox 98.1 F 89 20 137/83 H 97 06/04/19 16:00 06/04/19 16:00 06/04/19 16:00 06/04/19 16:00 06/04/19 16:00 Intake & Output 06/03/19 06/04/19 06/05/19 06:59 06:59 06:59 Intake Total 2620 1340 1335 Output Total 225 Balance 2395 1340 1335 Weight 78.4 kg 78.4 kg General appearance: PRESENT: no acute distress Eye exam: PRESENT: PERRLA Respiratory exam: PRESENT: clear to auscultation keith Cardiovascular exam: PRESENT: +S1, +S2 GI/Abdominal exam: PRESENT: soft Neurological exam: PRESENT: alert Results Laboratory Results: 06/03/19 04:40 06/03/19 04:40 Impressions: Chest X-Ray 05/31/19 15:15 IMPRESSION: NO ACUTE RADIOGRAPHIC FINDING IN THE CHEST. Chest CT 05/31/19 16:54 IMPRESSION: 1. 5 MM NODULE IN THE RIGHT LOWER LOBE. FOLLOW-UP CLINICALLY INDICATED. MILD SCARRING IN THE LUNG BASES. NO ACUTE FINDINGS. 2. THYROID NODULES. 3. NO OTHER SIGNIFICANT FINDING ON NON-CONTRASTED CHEST CT. Assessment & Plan - Diagnosis (1) Dehydration Is this a current diagnosis for this admission?: Yes (2) Weakness Is this a current diagnosis for this admission?: Yes (3) Vomiting Qualifiers: Vomiting type: unspecified Vomiting Intractability: intractable Nausea presence: with nausea Qualified Code(s): R11.2 - Nausea with vomiting, unspecified Is this a current diagnosis for this admission?: Yes Plan: , Upper endoscopy did not demonstrate any specific pathology, barium swallow ordered to rule out achalasia - Time Time Spent with patient: 15-24 minutes Level of Care: MEDICAL
[2019-06-04] MEDS: LATANOPROST 0.005% OPH SOLN 2.5 ML OS SCH (21:35)
[2019-06-04] MEDS: PREGABALIN 50 MG CAPSULE PO SCH (21:36)
[2019-06-05] MEDS: NORMAL SALINE 1000 ML 1,000 ML IV PRN ×2 (03:12→17:22)
[2019-06-05] MEDS: AMLODIPINE BESYLATE 10 MG TABLET PO SCH (10:37)
[2019-06-05] MEDS: LEVOFLOXACIN 500 MG TABLET PO SCH (10:37)
[2019-06-05] MEDS: LOSARTAN POTASSIUM 50 MG TABLET PO SCH (10:37)
[2019-06-05] MEDS: LORAZEPAM 1 MG TABLET PO SCH ×2 (10:38→17:20)
--- NOTE | 2019-06-05 10:57 | RADIOLOGY REPORT (SQ) ---
EXAM DESCRIPTION: BARIUM SWALLOW ESOPHAGUS COMPLETED DATE/TIME: 06/05/2019 9:13 am REASON FOR STUDY: ? achalasia D46.4 REFRACTORY ANEMIA, UNSPECIFIED COMPARISON: 11/01/2018 barium swallow TECHNIQUE: Under fluoroscopic guidance, patient ingested effervescent granules followed by thick and thin barium. Fluoroscopic spot images and routine radiographic images acquired and stored on PACS. 12 MM BARIUM TABLET GIVEN: Yes. 2 minutes delay in passage at the GE junction LIMITATIONS: None. FLUOROSCOPY TIME: FLUORO TIME: 2 minutes of fluoroscopy was used. 10 images saved to PACS. FINDINGS: NEUROMUSCULAR COORDINATION OF SWALLOW: Normal. No aspiration. ESOPHAGEAL MOTILITY: Normal peristalsis. Minimal tertiary contractions distal esophagus. No esophag eal spasm. ESOPHAGEAL MUCOSA: Normal mucosa without masses or ulceration. GASTRO-ESOPHAGEAL JUNCTION: Mild narrowing at the GE junction which did delay passage of a 12 mm herman um tablet. Small sliding hiatal hernia. Reflux was not elicited on today's study. NON-GI TRACT STRUCTURES: No significant finding. OTHER: No other significant finding. IMPRESSION: MILD NARROWING AT THE GE JUNCTION CAUSING DELAY IN PASSAGE OF A 12 MM BARIUM TABLET. SM ALL SLIDING HIATAL HERNIA WITHOUT ELICITED REFLUX. COMMENT: Quality ID [id number]: Final reports for procedures using fluoroscopy that document radiation exp osure indices, or exposure time and number of fluorographic images (if radiation exposure indices are not available) TECHNICAL DOCUMENTATION: JOB ID: [id number] 2010 [employer]- All Rights Reserved Reading location - IP/workstation name: [email or web address]
--- NOTE | 2019-06-05 12:16 | PDOC PROGRESS REPORT ---
Subjective Progress Note for:: 06/05/19 Reason For Visit: WEAKNESS,DEHYDRATION patient had esophageal swallowing study she had EGD yesterday no new findings noted on barium swallow she does have a schatzki's ring that was noted on EGD, it can appear to be a mild stricture on a non specific x ray study however pathology does show Sheehan's negative for H.Pylori no post procedure complications Physical Exam Vital Signs: Temp Pulse Resp BP Pulse Ox 98.4 F 89 19 138/80 H 97 06/05/19 00:00 06/05/19 07:00 06/05/19 00:00 06/05/19 00:00 06/05/19 00:00 Intake & Output 06/04/19 06/05/19 06/06/19 06:59 06:59 06:59 Intake Total 1340 2335 Balance 1340 2335 Weight 78.4 kg 78.4 kg General appearance: PRESENT: no acute distress, well-developed, well-nourished Head exam: PRESENT: atraumatic, normocephalic Eye exam: PRESENT: EOMI, PERRLA. ABSENT: nystagmus, periorbital swelling, scleral icterus Mouth exam: PRESENT: moist, neck supple Throat exam: ABSENT: tonsillar exudate, tonsillogmegaly Neck exam: ABSENT: meningismus, tenderness, thyromegaly Respiratory exam: PRESENT: symmetrical, unlabored. ABSENT: tachypnea, wheezes Cardiovascular exam: PRESENT: RRR, +S1, +S2 GI/Abdominal exam: PRESENT: soft. ABSENT: rebound, rigid, tenderness Extremities exam: ABSENT: joint swelling Musculoskeletal exam: PRESENT: full ROM Neurological exam: PRESENT: oriented to time, oriented to situation, CN II-XII grossly intact Focused psych exam: ABSENT: restlessness Skin exam: PRESENT: normal color. ABSENT: mottled, pallor, urticaria, vesicles Results Laboratory Results: 06/03/19 04:40 06/03/19 04:40 Impressions: Chest X-Ray 05/31/19 15:15 IMPRESSION: NO ACUTE RADIOGRAPHIC FINDING IN THE CHEST. Chest CT 05/31/19 16:54 IMPRESSION: 1. 5 MM NODULE IN THE RIGHT LOWER LOBE. FOLLOW-UP CLINICALLY INDICATED. MILD SCARRING IN THE LUNG BASES. NO ACUTE FINDINGS. 2. THYROID NODULES. 3. NO OTHER SIGNIFICANT FINDING ON NON-CONTRASTED CHEST CT. Esophagus X-Ray 06/05/19 00:00 IMPRESSION: MILD NARROWING AT THE GE JUNCTION CAUSING DELAY IN PASSAGE OF A 12 MM BARIUM TABLET. SMALL SLIDING HIATAL HERNIA WITHOUT ELICITED REFLUX. Assessment & Plan - Diagnosis (2) Intractable vomiting Qualifiers: Vomiting type: unspecified Nausea presence: with nausea Qualified Code(s): R11.2 - Nausea with vomiting, unspecified Is this a current diagnosis for this admission?: Yes Plan: negative for H.Pylori continue PPI, antiemetics (3) Schatzki's ring Is this a current diagnosis for this admission?: No Plan: This was broken, if symptoms persists, may need dilation can schedule as outpatient (4) Hiatal hernia Is this a current diagnosis for this admission?: No Plan: follow as needed not a candidate for surgery (5) Barretts esophagus Is this a current diagnosis for this admission?: No Plan: may need ablation at some point - Time Time Spent with patient: 15-24 minutes
--- NOTE | 2019-06-05 19:33 | PDOC DISCHARGE SUMMARY ---
Impression - Admit/DC Date/PCP Admission Date/Primary Care Provider: 06/04/19 15:31 SHANIA ARDON MD Discharge Date: 06/06/19 - Discharge Diagnosis (1) Dehydration Is this a current diagnosis for this admission?: Yes (2) Weakness Is this a current diagnosis for this admission?: Yes (3) Vomiting Is this a current diagnosis for this admission?: Yes (4) Barretts esophagus Is this a current diagnosis for this admission?: Yes - Additional Information Resuscitation Status: Full Code Referrals: ELDA JULIAN MD [ACTIVE STAFF] - SHANIA ARDON MD [Primary Care Provider] - Follow up as needed (BX RESULTS) Home Medications: Lorazepam [Ativan 1 mg Tablet] 1 mg PO Q12 07/31/16 Amlodipine Besylate [Norvasc 10 mg Tablet] 10 mg PO DAILY #90 tablet 08/03/16 Hydrocodone Bit/Acetaminophen [Hydrocodon-Acetaminophn 10-325] 1 tab PO Q8HP PRN 05/31/19 Losartan/Hydrochlorothiazide [Hyzaar 100-12.5 Tablet] 1 tab PO DAILY 05/31/19 Pregabalin [Lyrica 50 mg Capsule] 50 mg PO QHS 05/31/19 Dexlansoprazole [Dexilant 60 mg Capsule] 60 mg PO DAILY 06/01/19 Omeprazole 20 mg PO DAILY 06/01/19 Travoprost 1 drop OS QHS 06/01/19 History of Present Illiness History of Present Illness: CORNELIA AMAYA is a 83 year old female patient who presented to the ED with complain about ongoing difficulty with breathing and generalized weakness. She was seen at her PCP office recently for possible infectious origin for her symptoms and started on Levofloxacin therapy. She reported worsening weakness after six days of therapy necessitating her coming to the ED for further evaluation. She reported associated poor appetite and oral intake. She denied nausea, vomiting, or abdominal pain. No fever or chills. No dysuria, hematuria or flank pain. Her initial ED evaluation was unrevealing for any significant acute abnormality. She was advised admission to observation bed in view of her age, persistence of her symptoms despite outpatient therapy. Her morbidities are as listed below. Hospital Course Hospital Course: She had CT scan of the chest without contrast on May 31, 2019 at presentation in the emergency room,It demonstrated 5 mm nodule in the right lower lobe. Mild scarring in the lung bases, no infiltrates, no pleural effusions, no pleural calcifications.Patient was initially admitted for obse rvation, she has nonspecific symptoms of fatigue ,dehydration she was treated with IV fluid, she had episode of vomiting, anorexia, consultation was requested from GI she underwent upper endoscopy by Dr. Smith, it demonstrated nonspecific gastritis no particular mucosal pathology of the esophagus was found, a subsequent barium swallow done was negative for achalasia. 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 Physical Exam Vital Signs: Temp Pulse Resp BP Pulse Ox 98.3 F 93 22 H 128/89 H 95 06/05/19 15:54 06/05/19 15:54 06/05/19 15:54 06/05/19 15:54 06/05/19 15:54 Intake & Output 06/04/19 06/05/19 06/06/19 06:59 06:59 06:59 Intake Total 1340 2335 1480 Output Total 500 Balance 1340 2335 980 Weight 78.4 kg 78.4 kg General appearance: PRESENT: no acute distress Eye exam: PRESENT: PERRLA Respiratory exam: PRESENT: clear to auscultation keith Cardiovascular exam: PRESENT: +S1, +S2 GI/Abdominal exam: PRESENT: soft Neurological exam: PRESENT: alert Results Laboratory Results: WBC 7.9 10^3/uL (4.0-10.5) 06/03/19 04:40 RBC 4.15 10^6/uL (3.72-5.28) 06/03/19 04:40 Hgb 14.1 g/dL (12.0-15.5) 06/03/19 04:40 Hct 39.8 % (36.0-47.0) 06/03/19 04:40 MCV 96 fl (80-97) 06/03/19 04:40 MCH 34.0 pg (27.0-33.4) H 06/03/19 04:40 MCHC 35.5 g/dL (32.0-36.0) 06/03/19 04:40 RDW 12.9 % (11.5-14.0) 06/03/19 04:40 Plt Count 313 10^3/uL (150-450) 06/03/19 04:40 Lymph % (Auto) 28.0 % (13-45) 06/03/19 04:40 [place] % (Auto) 10.2 % (3-13) 06/03/19 04:40 Eos % (Auto) 0.8 % (0-6) 06/03/19 04:40 Baso % (Auto) 0.8 % (0-2) 06/03/19 04:40 Absolute Neuts (auto) 4.8 10^3/uL (1.7-8.2) 06/03/19 04:40 Absolute Lymphs (auto) 2.2 10^3/uL (0.5-4.7) 06/03/19 04:40 Absolute Monos (auto) 0.8 10^3/uL (0.1-1.4) 06/03/19 04:40 Absolute Eos (auto) 0.1 10^3/uL (0.0-0.6) 06/03/19 04:40 Absolute Basos (auto) 0.1 10^3/uL (0.0-0.2) 06/03/19 04:40 Seg Neutrophils % 60.2 % (42-78) 06/03/19 04:40 Sodium 138.7 mmol/L (137-145) 06/03/19 04:40 Potassium 3.7 mmol/L (3.6-5.0) 06/03/19 04:40 Chloride 106 mmol/L (98-107) 06/03/19 04:40 Carbon Dioxide 22 mmol/L (22-30) 06/03/19 04:40 Anion Gap 11 (5-19) 06/03/19 04:40 BUN 11 mg/dL (7-20) 06/03/19 04:40 Creatinine 0.66 mg/dL (0.52-1.25) 06/03/19 04:40 Est GFR ( Amer) > 60 (>60) 06/03/19 04:40 Est GFR (MDRD) Non-Af > 60 (>60) 06/03/19 04:40 Glucose 106 mg/dL (75-110) 06/03/19 04:40 Calcium 9.4 mg/dL (8.4-10.2) 06/03/19 04:40 Total Bilirubin 0.5 mg/dL (0.2-1.3) 06/03/19 04:40 Direct Bilirubin 0.3 mg/dL (0.0-0.4) 06/03/19 04:40 Neonat Total Bilirubin Not Reportable 06/03/19 04:40 Neonat Direct Bilirubin Not Reportable 06/03/19 04:40 Neonat Indirect Bili Not Reportable 06/03/19 04:40 AST 30 U/L (14-36) 06/03/19 04:40 ALT 18 U/L (<35) 06/03/19 04:40 Alkaline Phosphatase 73 U/L (38-126) 06/03/19 04:40 Total Protein 6.8 g/dL (6.3-8.2) 06/03/19 04:40 Albumin 3.7 g/dL (3.5-5.0) 06/03/19 04:40 Urine Color YELLOW 05/31/19 18:13 Urine Appearance CLEAR 05/31/19 18:13 Urine pH 6.0 (5.0-9.0) 05/31/19 18:13 Ur Specific [place] 1.024 05/31/19 18:13 Urine Protein NEGATIVE mg/dL (NEGATIVE) 05/31/19 18:13 Urine Glucose (UA) NEGATIVE mg/dL (NEGATIVE) 05/31/19 18:13 Urine Ketones NEGATIVE mg/dL (NEGATIVE) 05/31/19 18:13 Urine Blood NEGATIVE (NEGATIVE) 05/31/19 18:13 Urine Nitrite NEGATIVE (NEGATIVE) 05/31/19 18:13 Urine Bilirubin NEGATIVE (NEGATIVE) 05/31/19 18:13 Urine Urobilinogen 4.0 mg/dL (<2.0) H 05/31/19 18:13 Ur Leukocyte Esterase NEGATIVE (NEGATIVE) 05/31/19 18:13 Urine WBC (Auto) 1 /HPF 05/31/19 18:13 Urine RBC (Auto) 1 /HPF 05/31/19 18:13 Squamous Epi Cells Auto 3 /HPF 05/31/19 18:13 Urine Mucus (Auto) RARE /LPF 05/31/19 18:13 Urine Ascorbic Acid NEGATIVE (NEGATIVE) 05/31/19 18:13 Impressions: Chest X-Ray 05/31/19 15:15 IMPRESSION: NO ACUTE RADIOGRAPHIC FINDING IN THE CHEST. Chest CT 05/31/19 16:54 IMPRESSION: 1. 5 MM NODULE IN THE RIGHT LOWER LOBE. FOLLOW-UP CLINICALLY INDICATED. MILD SCARRING IN THE LUNG BASES. NO ACUTE FINDINGS. 2. THYROID NODULES. 3. NO OTHER SIGNIFICANT FINDING ON NON-CONTRASTED CHEST CT. Esophagus X-Ray 06/05/19 00:00 IMPRESSION: MILD NARROWING AT THE GE JUNCTION CAUSING DELAY IN PASSAGE OF A 12 MM BARIUM TABLET. SMALL SLIDING HIATAL HERNIA WITHOUT ELICITED REFLUX. Stroke Is this a Stroke Patient?: No Acute Heart Failure - Is this a Heart Failure Patient?: No
[2019-06-05] MEDS: PREGABALIN 50 MG CAPSULE PO SCH (21:47)
[2019-06-05] MEDS: LATANOPROST 0.005% OPH SOLN 2.5 ML OS SCH (21:47)
[2019-06-06] MEDS: LOSARTAN POTASSIUM 50 MG TABLET PO SCH (09:26)
[2019-06-06] MEDS: AMLODIPINE BESYLATE 10 MG TABLET PO SCH (09:26)
[2019-06-06] MEDS: LORAZEPAM 1 MG TABLET PO SCH ×2 (09:27→17:02)
[2019-06-06] MEDS: LEVOFLOXACIN 500 MG TABLET PO SCH (09:27)
--- NOTE | 2019-06-06 18:54 | PDOC PROGRESS REPORT ---
Subjective Progress Note for:: 06/06/19 Subjective:: Patient was supposed to be discharged home today but she has impaired mobility, she is requesting transfer to half-way for rehabilitation and physical therapy, discharge planning is discontinued, consultation requested from physical therapy Reason For Visit: WEAKNESS,DEHYDRATION Physical Exam Vital Signs: Temp Pulse Resp BP Pulse Ox 98.1 F 87 16 131/92 H 95 06/06/19 16:00 06/06/19 16:00 06/06/19 16:00 06/06/19 16:00 06/06/19 16:00 Intake & Output 06/05/19 06/06/19 06/07/19 06:59 06:59 06:59 Intake Total 2335 1480 1500 Output Total 500 Balance 2335 980 1500 Weight 78.4 kg 78.4 kg General appearance: PRESENT: no acute distress Eye exam: PRESENT: PERRLA Respiratory exam: PRESENT: clear to auscultation keith Cardiovascular exam: PRESENT: +S1, +S2 Results Laboratory Results: 06/03/19 04:40 06/03/19 04:40 Impressions: Chest X-Ray 05/31/19 15:15 IMPRESSION: NO ACUTE RADIOGRAPHIC FINDING IN THE CHEST. Chest CT 05/31/19 16:54 IMPRESSION: 1. 5 MM NODULE IN THE RIGHT LOWER LOBE. FOLLOW-UP CLINICALLY INDICATED. MILD SCARRING IN THE LUNG BASES. NO ACUTE FINDINGS. 2. THYROID NODULES. 3. NO OTHER SIGNIFICANT FINDING ON NON-CONTRASTED CHEST CT. Esophagus X-Ray 06/05/19 00:00 IMPRESSION: MILD NARROWING AT THE GE JUNCTION CAUSING DELAY IN PASSAGE OF A 12 MM BARIUM TABLET. SMALL SLIDING HIATAL HERNIA WITHOUT ELICITED REFLUX. Assessment & Plan - Diagnosis (1) Dehydration Is this a current diagnosis for this admission?: Yes (2) Weakness Is this a current diagnosis for this admission?: Yes (3) Vomiting Qualifiers: Vomiting type: unspecified Vomiting Intractability: intractable Nausea presence: with nausea Qualified Code(s): R11.2 - Nausea with vomiting, unspecified Is this a current diagnosis for this admission?: Yes (4) Barretts esophagus Is this a current diagnosis for this admission?: Yes - Time Time Spent with patient: 25-34 minutes - Plan Summary Plan Summary: Consult physical therapy for evaluation and management
[2019-06-06] MEDS: LATANOPROST 0.005% OPH SOLN 2.5 ML OS SCH (21:36)
[2019-06-06] MEDS: PREGABALIN 50 MG CAPSULE PO SCH (21:36)
[2019-06-07] MEDS: AMLODIPINE BESYLATE 10 MG TABLET PO SCH (09:20)
[2019-06-07] MEDS: LEVOFLOXACIN 500 MG TABLET PO SCH (09:20)
[2019-06-07] MEDS: LOSARTAN POTASSIUM 50 MG TABLET PO SCH (09:20)
[2019-06-07] MEDS: LORAZEPAM 1 MG TABLET PO SCH ×2 (09:20→17:11)
--- NOTE | 2019-06-07 10:28 | PDOC PROGRESS REPORT ---
Subjective Progress Note for:: 06/07/19 Subjective:: Patient is currently doing well Denied any chest pain no short of breath Patient was admitted for the dehydration nausea vomiting currently doing well Patient is waiting for the going to the rehab facilities Reason For Visit: WEAKNESS,DEHYDRATION Physical Exam Vital Signs: Temp Pulse Resp BP Pulse Ox 99.0 F 88 16 120/83 96 06/07/19 07:51 06/07/19 07:51 06/07/19 07:51 06/07/19 07:51 06/07/19 07:51 Intake & Output 06/06/19 06/07/19 06/08/19 06:59 06:59 06:59 Intake Total 1480 2140 Output Total 500 Balance 980 2140 Weight 78.4 kg 77.7 kg General appearance: PRESENT: no acute distress, well-developed, well-nourished Head exam: PRESENT: atraumatic, normocephalic Eye exam: PRESENT: conjunctiva pink, EOMI, PERRLA. ABSENT: scleral icterus Ear exam: PRESENT: normal external ear exam Mouth exam: PRESENT: moist, tongue midline Neck exam: PRESENT: full ROM. ABSENT: carotid bruit, JVD, lymphadenopathy, thyromegaly Respiratory exam: PRESENT: clear to auscultation keith Cardiovascular exam: PRESENT: RRR. ABSENT: diastolic murmur, rubs, systolic murmur Pulses: PRESENT: normal dorsalis pedis pul, +2 pedal pulses bilateral Vascular exam: PRESENT: normal capillary refill GI/Abdominal exam: PRESENT: normal bowel sounds, soft. ABSENT: distended, gua rding, mass, organolmegaly, rebound, tenderness Rectal exam: PRESENT: deferred Extremities exam: ABSENT: pedal edema Musculoskeletal exam: PRESENT: ambulatory Neurological exam: PRESENT: alert, awake, oriented to person, oriented to place, oriented to time, oriented to situation, CN II-XII grossly intact. ABSENT: motor sensory deficit Psychiatric exam: PRESENT: appropriate affect, normal mood. ABSENT: homicidal ideation, suicidal ideation Skin exam: PRESENT: dry, intact, warm. ABSENT: cyanosis, rash Results Laboratory Results: 06/03/19 04:40 06/03/19 04:40 Impressions: Chest X-Ray 05/31/19 15:15 IMPRESSION: NO ACUTE RADIOGRAPHIC FINDING IN THE CHEST. Chest CT 05/31/19 16:54 IMPRESSION: 1. 5 MM NODULE IN THE RIGHT LOWER LOBE. FOLLOW-UP CLINICALLY INDICATED. MILD SCARRING IN THE LUNG BASES. NO ACUTE FINDINGS. 2. THYROID NODULES. 3. NO OTHER SIGNIFICANT FINDING ON NON-CONTRASTED CHEST CT. Esophagus X-Ray 06/05/19 00:00 IMPRESSION: MILD NARROWING AT THE GE JUNCTION CAUSING DELAY IN PASSAGE OF A 12 MM BARIUM TABLET. SMALL SLIDING HIATAL HERNIA WITHOUT ELICITED REFLUX. Assessment & Plan - Diagnosis (1) Barretts esophagus Is this a current diagnosis for this admission?: Yes (2) Dehydration Is this a current diagnosis for this admission?: Yes (3) HTN (hypertension) Qualifiers: Hypertension type: essential hypertension Qualified Code(s): I10 - Essential (primary) hypertension Is this a current diagnosis for this admission?: Yes (4) Hiatal hernia Is this a current diagnosis for this admission?: Yes (5) Weakness Is this a current diagnosis for this admission?: Yes - Time Time Spent with patient: 15-24 minutes Level of Care: TELE Medications reviewed and adjusted accordingly: Yes Anticipated discharge: Acute Rehab Within: Other - Plan Summary Plan Summary: Patient is waiting to go to the rehabs
[2019-06-07] MEDS: PREGABALIN 50 MG CAPSULE PO SCH (22:23)
[2019-06-07] MEDS: LATANOPROST 0.005% OPH SOLN 2.5 ML OS SCH (22:24)
[2019-06-08] MEDS: AMLODIPINE BESYLATE 10 MG TABLET PO SCH (09:02)
[2019-06-08] MEDS: LOSARTAN POTASSIUM 50 MG TABLET PO SCH (09:02)
--- NOTE | 2019-06-08 10:03 | PDOC PROGRESS REPORT ---
Subjective Progress Note for:: 06/08/19 Subjective:: Patient is currently doing well Denied any chest pain no short of breath Patient was admitted for the dehydration nausea vomiting currently doing well Patient is waiting for the going to the rehab facilities Reason For Visit: WEAKNESS,DEHYDRATION Physical Exam Vital Signs: Temp Pulse Resp BP Pulse Ox 98.7 F 89 16 107/56 L 92 06/08/19 07:41 06/08/19 07:41 06/08/19 07:41 06/08/19 07:41 06/08/19 07:41 Intake & Output 06/07/19 06/08/19 06/09/19 06:59 06:59 06:59 Intake Total 2140 600 Balance 2140 600 Weight 77.7 kg 76.9 kg General appearance: PRESENT: no acute distress, well-developed, well-nourished Head exam: PRESENT: atraumatic, normocephalic Eye exam: PRESENT: conjunctiva pink, EOMI, PERRLA. ABSENT: scleral icterus Ear exam: PRESENT: normal external ear exam Mouth exam: PRESENT: moist, tongue midline Neck exam: PRESENT: full ROM. ABSENT: carotid bruit, JVD, lymphadenopathy, thyromegaly Respiratory exam: PRESENT: clear to auscultation keith Cardiovascular exam: PRESENT: RRR. ABSENT: diastolic murmur, rubs, systolic murmur Pulses: PRESENT: normal dorsalis pedis pul, +2 pedal pulses bilateral Vascular exam: PRESENT: normal capillary refill GI/Abdominal exam: PRESENT: normal bowel sounds, soft. ABSENT: distended, guarding, mass, organolmegaly, rebound, tenderness Rectal exam: PRESENT: deferred Neurological exam: PRESENT: alert, awake, oriented to person, oriented to place, oriented to time, oriented to situation, CN II-XII grossly intact. ABSENT: motor sensory deficit Psychiatric exam: PRESENT: appropriate affect, normal mood. ABSENT: homicidal ideation, suicidal ideation Skin exam: PRESENT: dry, intact, warm. ABSENT: cyanosis, rash Results Laboratory Results: 06/03/19 04:40 06/03/19 04:40 Impressions: Chest X-Ray 05/31/19 15:15 IMPRESSION: NO ACUTE RADIOGRAPHIC FINDING IN THE CHEST. Chest CT 05/31/19 16:54 IMPRESSION: 1. 5 MM NODULE IN THE RIGHT LOWER LOBE. FOLLOW-UP CLINICALLY INDICATED. MILD SCARRING IN THE LUNG BASES. NO ACUTE FINDINGS. 2. THYROID NODULES. 3. NO OTHER SIGNIFICANT FINDING ON NON-CONTRASTED CHEST CT. Esophagus X-Ray 06/05/19 00:00 IMPRESSION: MILD NARROWING AT THE GE JUNCTION CAUSING DELAY IN PASSAGE OF A 12 MM BARIUM TABLET. SMALL SLIDING HIATAL HERNIA WITHOUT ELICITED REFLUX. Assessment & Plan - Diagnosis (1) Barretts esophagus Is this a current diagnosis for this admission?: Yes (2) Dehydration Is this a current diagnosis for this admission?: Yes (3) HTN (hypertension) Qualifiers: Hypertension type: essential hypertension Qualified Code(s): I10 - Essential (primary) hypertension Is this a current diagnosis for this admission?: Yes (4) Hiatal hernia Is this a current diagnosis for this admission?: Yes (5) Weakness Is this a current diagnosis for this admission?: Yes - Time Time Spent with patient: 15-24 minutes Level of Care: TELE Medications reviewed and adjusted accordingly: Yes Anticipated discharge: Other Within: Other - Plan Summary Plan Summary: Continues to current medication awaiting for physical therapy evaluations
[2019-06-08] MEDS: PREGABALIN 50 MG CAPSULE PO SCH (21:02)
[2019-06-08] MEDS: LATANOPROST 0.005% OPH SOLN 2.5 ML OS SCH (21:03)
[2019-06-09] MEDS: LOSARTAN POTASSIUM 50 MG TABLET PO SCH (09:22)
[2019-06-09] MEDS: AMLODIPINE BESYLATE 10 MG TABLET PO SCH (09:22)
[2019-06-09 21:37] LABS: ABSOLUTE EOSINOPHILS # (AUTO) 0.3 10^3/uL (0.0-0.6); ABSOLUTE LYMPHOCYTES (AUTO) 2.8 10^3/uL (0.5-4.7); ABSOLUTE MONOCYTES (AUTO) 1.1 10^3/uL (0.1-1.4); ABSOLUTE NEUT (AUTO) 4.9 10^3/uL (1.7-8.2); BASOPHILS % (AUTO) 0.4 % (0-2); EOSINOPHILS % (AUTO) 3.4 % (0-6); HEMATOCRIT 41.8 % (36.0-47.0); HEMOGLOBIN 14.4 g/dL (12.0-15.5); MEAN CORPUSCULAR HEMOGLOBIN 33.2 pg (27.0-33.4); MEAN CORPUSCULAR HGB CONC 34.4 g/dL (32.0-36.0); MEAN CORPUSCULAR VOLUME 96 fl (80-97); MONOCYTES % (AUTO) 12.2 % (3-13); PLATELET COUNT 335 10^3/uL (150-450); RED BLOOD COUNT 4.34 10^6/uL (3.72-5.28); RED CELL DISTRIBUTION WIDTH 12.9 % (11.5-14.0); TOTAL CELLS COUNTED % (AUTO) 100 %; WHITE BLOOD COUNT 9.2 10^3/uL (4.0-10.5)
[2019-06-09] MEDS: PREGABALIN 50 MG CAPSULE PO SCH (21:44)
[2019-06-09] MEDS: LATANOPROST 0.005% OPH SOLN 2.5 ML OS SCH (21:44)
[2019-06-09 21:56] LABS: ALBUMIN 3.9 g/dL (3.5-5.0); ALKALINE PHOSPHATASE 67 U/L (38-126); ANION GAP 12 (5-19); ASPARTATE AMINO TRANSFERASE 25 U/L (14-36); BILIRUBIN,DIRECT 0.2 mg/dL (0.0-0.4); BILIRUBIN,TOTAL 0.6 mg/dL (0.2-1.3); BLOOD UREA NITROGEN 17 mg/dL (7-20); CALCIUM 9.8 mg/dL (8.4-10.2); CARBON DIOXIDE 25 mmol/L (22-30); CHLORIDE 101 mmol/L (98-107); GLUCOSE 101 mg/dL (75-110)
--- NOTE | 2019-06-09 22:06 | PDOC PROGRESS REPORT ---
Subjective Progress Note for:: 06/09/19 Subjective:: Patient seen by the bedside undergoing physical therapy awaiting insurance authorization for PT Reason For Visit: WEAKNESS,DEHYDRATION Physical Exam Vital Signs: Temp Pulse Resp BP Pulse Ox 98.3 F 86 17 115/74 96 06/09/19 19:47 06/09/19 19:47 06/09/19 19:47 06/09/19 19:47 06/09/19 19:47 Intake & Output 06/08/19 06/09/19 06/10/19 06:59 06:59 06:59 Intake Total 600 760 600 Balance 600 760 600 Weight 76.9 kg 78.9 kg General appearance: PRESENT: no acute distress Eye exam: PRESENT: PERRLA Respiratory exam: PRESENT: clear to auscultation keith Cardiovascular exam: PRESENT: +S1, +S2 GI/Abdominal exam: PRESENT: soft Neurological exam: PRESENT: alert Results Laboratory Results: 06/09/19 21:10 06/09/19 21:10 06/09/19 06/09/19 21:10 21:10 WBC 9.2 RBC 4.34 Hgb 14.4 Hct 41.8 MCV 96 MCH 33.2 MCHC 34.4 RDW 12.9 Plt Count 335 Seg Neutrophils % 54.0 Sodium 137.7 Potassium 4.0 Chloride 101 Carbon Dioxide 25 Anion Gap 12 BUN 17 Creatinine 0.73 Est GFR ( Amer) > 60 Glucose 101 Calcium 9.8 Total Bilirubin 0.6 AST 25 Alkaline Phosphatase 67 Total Protein 7.0 Albumin 3.9 Impressions: Chest X-Ray 05/31/19 15:15 IMPRESSION: NO ACUTE RADIOGRAPHIC FINDING IN THE CHEST. Chest CT 05/31/19 16:54 IMPRESSION: 1. 5 MM NODULE IN THE RIGHT LOWER LOBE. FOLLOW-UP CLINICALLY INDICATED. MILD SCARRING IN THE LUNG BASES. NO ACUTE FINDINGS. 2. THYROID NODULES. 3. NO OTHER SIGNIFICANT FINDING ON NON-CONTRASTED CHEST CT. Esophagus X-Ray 06/05/19 00:00 IMPRESSION: MILD NARROWING AT THE GE JUNCTION CAUSING DELAY IN PASSAGE OF A 12 MM BARIUM TABLET. SMALL SLIDING HIATAL HERNIA WITHOUT ELICITED REFLUX. Assessment & Plan - Diagnosis (1) Dehydration Is this a current diagnosis for this admission?: Yes (2) Weakness Is this a current diagnosis for this admission?: Yes (3) Vomiting Qualifiers: Vomiting type: unspecified Vomiting Intractability: intractable Nausea presence: with nausea Qualified Code(s): R11.2 - Nausea with vomiting, unspecified Is this a current diagnosis for this admission?: Yes (4) Barretts esophagus Is this a current diagnosis for this admission?: Yes - Time Time Spent with patient: 15-24 minutes Level of Care: MEDICAL
[2019-06-10] MEDS: LOSARTAN POTASSIUM 50 MG TABLET PO SCH (09:21)
[2019-06-10] MEDS: AMLODIPINE BESYLATE 10 MG TABLET PO SCH (09:21)
[2019-06-10] MEDS: PREGABALIN 50 MG CAPSULE PO SCH (21:09)
[2019-06-10] MEDS: LATANOPROST 0.005% OPH SOLN 2.5 ML OS SCH (21:09)
--- NOTE | 2019-06-10 21:52 | PDOC PROGRESS REPORT ---
Subjective Progress Note for:: 06/10/19 Subjective:: Patient still waiting for insurance to authorize PT, we may need to consider discharge with home PT Reason For Visit: WEAKNESS,DEHYDRATION Physical Exam Vital Signs: Temp Pulse Resp BP Pulse Ox 98.0 F 86 20 97/63 L 100 06/10/19 16:27 06/10/19 19:00 06/10/19 16:27 06/10/19 16:27 06/10/19 16:27 Intake & Output 06/09/19 06/10/19 06/11/19 06:59 06:59 06:59 Intake Total 760 1510 1316 Output Total 250 200 Balance 760 1260 1116 Weight 78.9 kg 77.6 kg General appearance: PRESENT: no acute distress Respiratory exam: PRESENT: clear to auscultation keith Cardiovascular exam: PRESENT: +S1, +S2 GI/Abdominal exam: PRESENT: soft Results Laboratory Results: 06/09/19 21:10 06/09/19 21:10 06/09/19 06/09/19 21:10 21:10 WBC 9.2 RBC 4.34 Hgb 14.4 Hct 41.8 MCV 96 MCH 33.2 MCHC 34.4 RDW 12.9 Plt Count 335 Seg Neutrophils % 54.0 Sodium 137.7 Potassium 4.0 Chloride 101 Carbon Dioxide 25 Anion Gap 12 BUN 17 Creatinine 0.73 Est GFR ( Amer) > 60 Glucose 101 Calcium 9.8 Total Bilirubin 0.6 AST 25 Alkaline Phosphatase 67 Total Protein 7.0 Albumin 3.9 Impressions: Chest X-Ray 05/31/19 15:15 IMPRESSION: NO ACUTE RADIOGRAPHIC FINDING IN THE CHEST. Chest CT 05/31/19 16:54 IMPRESSION: 1. 5 MM NODULE IN THE RIGHT LOWER LOBE. FOLLOW-UP CLINICALLY INDICATED. MILD SCARRING IN THE LUNG BASES. NO ACUTE FINDINGS. 2. THYROID NODULES. 3. NO OTHER SIGNIFICANT FINDING ON NON-CONTRASTED CHEST CT. Esophagus X-Ray 06/05/19 00:00 IMPRESSION: MILD NARROWING AT THE GE JUNCTION CAUSING DELAY IN PASSAGE OF A 12 MM BARIUM TABLET. SMALL SLIDING HIATAL HERNIA WITHOUT ELICITED REFLUX. Assessment & Plan - Diagnosis (1) Dehydration Is this a current diagnosis for this admission?: Yes (2) Weakness Is this a current diagnosis for this admission?: Yes (3) Vomiting Qualifiers: Vomiting type: unspecified Vomiting Intractability: intractable Nausea presence: with nausea Qualified Code(s): R11.2 - Nausea with vomiting, unspecified Is this a current diagnosis for this admission?: Yes (4) Barretts esophagus Is this a current diagnosis for this admission?: Yes (5) Muscular deconditioning Is this a current diagnosis for this admission?: Yes - Time Time Spent with patient: 15-24 minutes Level of Care: MEDICAL
[2019-06-11] MEDS: LOSARTAN POTASSIUM 50 MG TABLET PO SCH (09:37)
[2019-06-11] MEDS: AMLODIPINE BESYLATE 10 MG TABLET PO SCH (09:38)
[2019-06-11 17:52] VITALS: BP 115/73
== END 2019-06-11 19:45 | disposition home health service (06) | DRG 641 ==
LOC: ER 14:52 → EH 20:36 → 4N 22:23 → OBSVTOIN 06-04 15:31
PROVIDERS: ADMIT Internal Medicine; ATTEND Internal Medicine
PROC: 0DB78ZX Excision of Stomach, Pylorus, Via Natural or Artificial Opening Endoscopic, Diagnostic (ICD-10-PCS; 2019-06-04)
PROC: 0DB48ZX Excision of Esophagogastric Junction, Via Natural or Artificial Opening Endoscopic, Diagnostic (ICD-10-PCS; principal; 2019-06-04 08:15)
DX: E86.0 Dehydration (principal); K29.70 Gastritis, unspecified, without bleeding; K22.2 Esophageal obstruction; K44.9 Diaphragmatic hernia without obstruction or gangrene; R91.1 Solitary pulmonary nodule; K22.70 Barrett's esophagus without dysplasia; I10 Essential (primary) hypertension; K21.9 Gastro-esophageal reflux disease without esophagitis; R53.1 Weakness; F32.9 Major depressive disorder, single episode, unspecified; M19.90 Unspecified osteoarthritis, unspecified site; Z82.49 Family history of ischemic heart disease and other diseases of the circulatory system; Z79.899 Other long term (current) drug therapy; G89.4 Chronic pain syndrome
CPT/HCPCS: 36415; 43239; 71045; 71250; 74220; 80053; 81001; 85025; 88305; 96360; 99285; G0378; J0171; J1200; J1610; J2250; J2310; J2405; J3010; J3490; J7030